=== PATIENT | female | born 1965 | race Caucasian/White ===

== ENCOUNTER 2021-11-09 13:41 | Emergency (ER) | payer BC, OTHER ==
[~2021-11-09] VITALS: Ht 182.9 cm; Wt 110.0 kg
[2021-11-09 14:00] LABS: Basophils # (auto) 0.1 10 ^3/uL (0-0.2); Eosinophils # (auto) 0.2 10 ^3/uL (0-0.8); Hematocrit 41.9 % (36.0-46.0); Hemoglobin 14.1 g/dL (12.2-16.2); Lymphocytes # (auto) 2.7 10 ^3/uL (0.4-5.4); Lymphocytes % (auto) 24.2 % (10.0-50.0); Mean Corpuscular Hgb Conc. 33.6 g/dL (32.0-36.0); Mean Corpuscular Volume 80.3 fL (80.0-100.0); Monocytes # (auto) 0.7 10 ^3/uL (0-1.3); Monocytes % (auto) 6.2 % (0.0-12.0); Neutrophils # (auto) 7.4 10 ^3/uL (1.6-8.6); Neutrophils % (auto) 66.6 % (37.0-80.0); Red Blood Cells 5.21 10^6/uL (4.0-5.20); Red Cell Distribution Width 15.6 % (11.8-14.3); White Blood Cell 11.1 10^3/uL (4.4-10.8)
[2021-11-09 14:15] LABS: Albumin 3.6 g/dL (3.4-5.0); Calcium 8.6 mg/dL (8.5-10.1); Magnesium 1.2 mg/dL (1.6-2.6); Potassium 3.2 mmol/L (3.5-5.1)
[2021-11-09 14:18] LABS: BUN/Creatinine Ratio 11.2; Bilirubin, Total 0.4 mg/dL (0.2-1.0); Total Protein 8.2 g/dL (6.4-8.2)
[2021-11-09 14:47] LABS: INR 1.01 (0.9-1.15)
[2021-11-09] MEDS: ASPirin 325 MG TAB PO ONE (17:57)
[2021-11-09 17:58] VITALS: BP 138/78
[2021-11-09] MEDS: NITROGLYCERIN 0.4 MG SL TAB SL ONE (17:58)
== END 2021-11-10 01:57 | disposition left against medical advice (07) ==
LOC: ER 13:41
DX: R07.89 Other chest pain (principal); I10 Essential (primary) hypertension; E11.9 Type 2 diabetes mellitus without complications; E78.5 Hyperlipidemia, unspecified; J45.909 Unspecified asthma, uncomplicated; F17.210 Nicotine dependence, cigarettes, uncomplicated; Z53.29 Procedure and treatment not carried out because of patient's decision for other reasons; Z20.822 Contact with and (suspected) exposure to COVID-19
CPT/HCPCS: 36415; 80053; 83690; 83735; 83880; 84484; 85025; 85379; 85610; 85730; 93005

== ENCOUNTER 2025-01-21 17:52 | Inpatient (IN) | payer OTHER ==
[~2025-01-21] VITALS: Ht 180.3 cm; Wt 115.3 kg
[2025-01-21] MEDS: MORPHINE SULFATE 4 MG/ML SYR/VIAL IV ONE (18:15)
[2025-01-21] MEDS: SODIUM CHLORIDE 0.9% 1,000 ML IVB ONE (18:15)
[2025-01-21] MEDS: ONDANSETRON HCL 4 MG/2 ML VIAL IV ONE (18:15)
--- NOTE | 2025-01-21 18:28 | ED.PDOC ---
General HPI Comments 59y F who presents to the ED for chief complaint of flank pain. Pt states she been having L sided abdominal pain radiating to the L flank for the past 2x weeks. Pt states the pain is constant, non-radiating, rating the pain 10/10, sharp in nature, with noted exacerbation of pain with movement and no relieving factors. Pt has associated nausea and vomiting but denies any other symptoms. Pt states she has had kidney stones bilaterally and has had lithotripsy done but no nephrostomy tube was placed. Pt states 1x hours prior, her pain exacerbated and pt went to chiropractor thinking it was due to her back pain but states she was told it was her kidney and to come to the ED for further evaluation. Pt in the ED, noted to be in distress. Pt denies any other symptoms. Chief Complaint: Flank Pain Time Seen by MD: 18:24 Primary Care Provider: CELESTINE Mejias notes: Medications, Allergies Allergies: Coded Allergies: NO KNOWN ALLERGIES (Unverified , 05/08/12) Information Source: Patient, Spouse Mode of Arrival: Wheelchair Brought in by: spouse Severity: Moderate Inability to void: None Timing: Hours, Weeks Duration: Since onset Prehospital treatment: None Onset: Spontaneous Symptoms: None History of: Kidney stone, Recent post-op Location: Suprapubic, (L)Flank Modifying factors: None associated signs and symptoms: Nausea, Vomiting, Flank Pain Past Medical History PAST MEDICAL HISTORY: Asthma, DM, High Lipids, HTN Past Medical History (Other): kidney stones Surgical History: Tonsillectomy, Tubal Ligation Surgical History (Other): lithotripsy, [employer] 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 Family History Family History (Other): [place] Social History Smoker: Cigarettes, Less Than 1 Pack/Day Alcohol: Denies ETOH Use Drugs: Denies Drug Use Lives In: Home Constitutional: denies: chills, diaphoresis, fatigue, fever, malaise, sweats, weakness, others EENTM: denies: blurred vision, double vision, ear bleeding, ear discharge, ear drainage, ear pain, ear ringing, eye pain, eye redness, hearing loss, mouth pain, mouth swelling, nasal discharge, nose bleeding, nose congestion, nose pain, photophobia, tearing, throat pain, throat swelling, voice changes, others Respiratory: denies: cough, hemoptysis, orthopnea, SOB at rest, shortness of breath, SOB with excertion, stridor, wheezing, others Cardiovascular: denies: chest pain, dizzy spells, diaphoresis, Dyspnea on exertion, edema, irregular heart beat, left arm pain, lightheadedness, palpitations, PND, syncope, others Gastrointestinal: reports: nausea, vomiting; denies: abdomen distended, abdominal pain, blood streaked bowels, constipated, diarrhea, dysphagia, difficulty swallowing, hematemesis, melena, poor appetite, poor fluid intake, rectal bleeding, rectal pain, others Genitourinary: reports: flank pain; denies: abnormal vagina bleeding, burning, dyspareunia, dysuria, frequency, hematuria, incontinence, pain, , vagina discharge, urgency, others Neurological: denies: dizziness, fainting, headache, left sided numbness, left sided weakness, numbness, paresthesia, pre-existing deficit, right sided numbness, right sided weakness, seizure, speech problems, tingling, tremors, weakness, others Musculoskeletal: denies: back pain, gout, joint pain, joint swelling, muscle pain, muscle stiffness, neck pain, others Integumetry: denies: bruises, change in color, change in hair/nails, dryness, laceration, lesions, lumps, rash, wounds, others Allergic/Immunocompromised: denies: Difficulty Healing, Frequent Infections, Hives, Itching, others Hematologic/Lymphatic: denies: anemia, blood clots, easy bleeding, easy bruising, swollen glands, others Endocrine: denies: excessive hunger, excessive sweating, excessive thirst, excessive urination, flushing, intolerance to cold, intolerance to heat, unexplained weight gain, unexplained weight loss, others Psychiatric: denies: anxiety, bipolar disorder, depression, hopeless, panic disorder, schizophrenia, sleepless, suicidal, others All Other Systems: Reviewed and Negative Physical Exam General Appearance: Moderate Distress HEENT: Normal ENT Inspection, Pharynx Normal, TMs Normal Neck: Full Range of Motion, Non-Tender, Normal, Normal Inspection Respiratory: Chest Non-Tender, Lungs Clear, No Accessory Muscle Use, No Respiratory Distress, Normal Breath Sounds Cardiovascular: No Edema, No JVD, No Murmur, No Gallop, Normal Peripheral Pulses, Regular Rate/Rhythm Breast Exam: Deferred Gastrointestinal: LLQ, LUQ, No Organomegaly, No Pulsatile Mass, Normal Bowel Sounds, Soft, Tenderness Genitalia: Deferred Pelvic: Deferred Rectal: Deferred Extremities: No calf tenderness, Normal capillary refill, Normal inspection, Normal range of motion, Non-tender, No pedal edema Musculoskeletal : Apperance: Normal Neurologic: Alert, fitter helper II-XII nml as Tested, No Motor Deficits, Normal Affect, Normal Mood, No Sensory Deficits Cerebellar Function: Normal Reflexes: Normal Skin: Dry, Normal Color, Warm Lymphatic: No Adenopathy Was a procedure done? Was a procedure done?: No Differential Diagnosis Kidney stone (Female): DJD, Musculoskeletal pain, Pyelonephritis, Strain, Urinary obstruction, Urolithiasis, Other Urinary Problem (Female): Post-op complication, Pyelonephritis, UTI X-Ray, Labs, Meds, VS Vital Signs Date Time Temp Pulse Resp B/P (MAP) Pulse Ox O2 Delivery O2 Flow Rate FiO2 01/21/25 17:56 98.7 87 18 117/72 97 98.7 Lab Test 01/21/25 18:31 Range/Units White Blood Count 10.2 4.4-10.8 10^3/uL Red Blood Count 5.56 H 4.0-5.20 10^6/uL Hemoglobin 15.2 12.2-16.2 g/dL Hematocrit 45.7 36.0-46.0 % Mean Corpuscular Volume 82.1 80.0-100.0 fL Mean Corpuscular Hemoglobin 27.4 L 28.0-32.0 pg Mean Corpuscular Hemoglobin Concent 33.4 32.0-36.0 g/dL Red Cell Distribution Width 15.2 H 11.8-14.3 % Platelet Count 251 140-450 10^3/uL Mean Platelet Volume 8.0 6.9-10.8 fL Neutrophils (%) (Auto) 57.6 37.0-80.0 % Lymphocytes (%) (Auto) 31.3 10.0-50.0 % Monocytes (%) (Auto) 7.8 0.0-12.0 % Eosinophils (%) (Auto) 2.8 0.0-7.0 % Basophils (%) (Auto) 0.5 0.0-2.0 % Neutrophils # (Auto) 5.9 1.6-8.6 10 ^3/uL Lymphocytes # (Auto) 3.2 0.4-5.4 10 ^3/uL Monocytes # (Auto) 0.8 0-1.3 10 ^3/uL Eosinophils # (Auto) 0.3 0-0.8 10 ^3/uL Basophils # (Auto) 0.1 0-0.2 10 ^3/uL Nucleated Red Blood Cells 0.0 % Sodium Level Pending Potassium Level Pending Chloride Level Pending Carbon Dioxide Level Pending Anion Gap Pending Blood Urea Nitrogen Pending Creatinine Pending Glomerular Filtration Rate Calc Pending BUN/Creatinine Ratio Pending Serum Glucose Pending Calcium Level Pending Intractable abdominal pain The CBC is within normal limits The chemistry panel is pending An IV Hep-Lock was established The patient was given morphine 4 mg IV push for the pain The patient was given ketorolac 15 mg IV push The patient was given Zofran 4 mg IV push At this time, the patient is being admitted to the hospitalist. The CAT scan of the abdomen and pelvis shows: IMPRESSION: Nonobstructing left nephrolithiasis measuring up to 17 mm in the lower pole. No hydronephrosis bilaterally. Hepatosplenomegaly. The patient is being admitted Images Reviewed?: Images reviewed and evaluated by me Time of 1ST Reevaluation: 19:00 Reevaluation 1ST: Unchanged Patient Education/Counseling: Diagnosis, Treatment, Prognosis Family Education/Counseling: Diagnosis, Treatment, Prognosis SEPSIS Sepsis Screen Date sepsis recognized/suspect: Jan 21, 2025 Time Sepsis recognized/suspect: 1755 Recent Procedure: No Respiratory Rate >20: No Heart Rate >90: No Temp<36 C (96.8 F) or >38.3 C: No SBP <90 or MAP <65 mmHG: No New Acute Mental Status Change: No Is the patient on CPAP, BIPAP,: No Physician Orders Urinalysis (01/21/25 18:14) Sodium Chloride 0.9% (01/21/25 18:15) Ct Ab Pel Wo Con-No Oral Or Iv (01/21/25 18:14) Heplock Iv (01/21/25 18:14) Basic Metabolic Panel (01/21/25 18:14) Vital Signs Date Time Temp Pulse Resp B/P (MAP) Pulse Ox O2 Delivery O2 Flow Rate FiO2 01/21/25 17:56 98.7 87 18 117/72 97 98.7 Laboratory Tests Test 01/21/25 18:31 White Blood Count 10.2 10^3/uL (4.4-10.8) Departure 1 Departure Time of Disposition: 18:58 Impression: Primary Impression: Intractable abdominal pain Additional Impression: Nephrolithiasis Disposition: 09 ADMITTED INPATIENT Admit to: Med Surg Condition: Fair Critical Care Note Critical Care Time?: No Stability Stability form required: Yes Unstable for transfer: ED Physician Assesment (Clinical assesment) Heart Score Heart Score: Heart Score Response (Comments) Value History N/A 0 EKG N/A 0 Age N/A 0 Risk Factors N/A 0 Troponin N/A 0 Total 0 I personally scribed for PAM BEACH MD ([email or web address]) on 01/21/25 at 18:28. Electronically submitted by Angelita Salinas ([email or web address]). PAM BEACH MD Jan 21, 2025 18:28
[2025-01-21 18:55] LABS: Hematocrit 45.7 % (36.0-46.0); Hemoglobin 15.2 g/dL (12.2-16.2); Mean Corpuscular Hemoglobin 27.4 pg (28.0-32.0); Mean Corpuscular Volume 82.1 fL (80.0-100.0); Nucleated Red Blood Cells % 0.0 %
--- NOTE | 2025-01-21 18:55 | DVH ---
Exam: CT CT AB PEL WO CON-NO ORAL OR IV History: left flank pain Comparison Study: None Technique: Multidetector spiral CT of the abdomen was performed from lung bases to pubic symphysis. Imaging was performed without IV contrast. Axial, coronal and sagittal multiplanar reformats were obtained from the axial data set by the technologist. Radiation Dose : 1. Abdomen/Pelvis: CTDIvol 27.59 mGy, DLP 1682.83 mGy*cm. Findings: Evaluation of solid organs is limited due to lack of intravenous contrast use. Lung Bases: No acute or significant lung base finding. Normal heart size. No pleural or pericardial effusion. Liver: Hepatomegaly. No focal lesions. Gallbladder and Biliary Tree: Unremarkable Spleen: Splenomegaly Pancreas: Unremarkable Adrenal Glands: There is a 14 mm low-density left adrenal nodule, likely a benign adenoma. Right adrenal gland is unremarkable. Kidneys: Nonobstructing left nephrolithiasis measuring up to 17 mm in the lower pole. No hydronephrosis bilaterally. Bladder: Grossly unremarkable for degree of distention. Bowel: No acute bowel abnormality. Normal appendix. Ascites: Absent Lymphadenopathy: No mesenteric, retroperitoneal or periportal lymphadenopathy. Abdominal Wall and Mesentery: Small fat containing bilateral inguinal hernias. Vasculature: Scattered plaque throughout the abdominal aorta which is otherwise normal in size. Pelvic Organs: Hysterectomy. No adnexal masses. Musculoskeletal: No aggressive focal bony lesions, acute fractures or dislocation. IMPRESSION: Nonobstructing left nephrolithiasis measuring up to 17 mm in the lower pole. No hydronephrosis bilaterally. Hepatosplenomegaly. Radiation optimization: All CT scans at this facility use at least one of these dose optimization techniques: automated exposure control mA and/or kV adjustment per patient size (includes targeted exams where dose is matched to clinical indication) or iterative reconstruction.
[2025-01-21 19:00] LABS: Chloride 105 mmol/L (98-107); Potassium 3.8 mmol/L (3.5-5.1); Sodium 145 mmol/L (136-145)
[2025-01-21 19:01] LABS: Anion Gap 9 (5-15); Calcium 9.4 mg/dL (8.7-10.4)
[2025-01-21 19:06] LABS: BUN/Creatinine Ratio 12.5 (10.0-20.0); Blood Urea Nitrogen 9 mg/dL (9-23)
[2025-01-21 19:07] LABS: Carbon Dioxide 31 mmol/L (20-31); Glucose 108 mg/dL (74-106)
[2025-01-21] MEDS ORDERED: ONDANSETRON ODT 4 MG TAB PO PRN (20:45)
[2025-01-21] MEDS: SODIUM CHLORIDE 0.9% 1,000 ML IV SCH (20:45)
[2025-01-21] MEDS: KETOROLAC TROMETH 30 MG/ML 1ML VIAL IV ONE (21:03)
--- NOTE | 2025-01-21 21:17 | DVHHPRES ---
History of Present Illness Resident Creating Document: CATHIE DEXTER RESIDENT History of Present Illness This is a 59-year-old female with past medical history of chronic back pain, anxiety, type 2 diabetes mellitus, asthma, hyperlipidemia, HTN, sciatica came with a complaint of abdominal pain for 2 weeks which is worsen around 5:30 p.m.. Abdominal pain was 10/10 intensity, radiates from left side of the abdomen to left flank area, aggravated on movement, no relieving factor. Patient had recurrent kidney stone and 3 times lithotripsy done last 21 Jun 2024(by Dr. Ahumada). Patient denies any dietary habit changes, drink adequate amount of water daily. Abdominal pain associated with nausea and vomiting with does contained food material but not mixed with blood. Patient denies any hematuria, dysuria, passes of clot in urine. Jorge L accompanied with patient in ER. Denies any recent history of fall, trauma or sick contact. Denies any fever, headache, chest pain, SOB or any other focal weakness. Past medical: As above Surgical: Hysterectomy 2015, lithotripsy x3 and last June 2024 Family history:-mother heart attack Social: Smoking given, denies illicit drug Allergy: No known allergy PCP: Rome Rodriguez. Home med: [place], Ozempic, alprazolam, pregabalin, levalbuterol, glimepiride, duloxetine, albuterol, rosuvastatin, allopurinol, valsartan. Review of Systems Constitutional: Yes: Weakness, Malaise; No: Fever, Chills, Sweats, Other Eyes: No: Pain, Vision change, Conjunctivae inflammation, Eyelid inflammation, Other, Redness ENT: No: Ear pain, Ear discharge, Nose pain, Nose discharge, Nose congestion, Mouth pain, Mouth swelling, Throat pain, Throat swelling, Other Respiratory: No: Cough, Dry, Shortness of breath, SOB with excertion, Wheezing, Hemoptysis, Pleuritic Pain, Sputum, Wheezing, Other Cardiovascular: No: Chest Pain, Palpitations, Orthopnea, Paroxysmal Noc. Dyspnea, Edema, Lt Headedness, Other Gastrointestinal: Nausea, Vomiting, Abdominal Pain; No: Diarrhea, Constipation, Melena, Hematochezia, Other Genitourinary: No Dysuria, No Frequency, No Incontinence, No Hematuria, No Retention; Other (Left flank pain) Musculoskeletal: No: other, neck pain, shoulder pain, arm pain, back pain, hand pain, leg pain, foot pain Skin: No: Rash, Lesions, Jaundice, Bruising, Other Neurological: No: Weakness, Numbness, Incoordination, Change in speech, Confusion, Seizures, Other Allergies: Coded Allergies: NO KNOWN ALLERGIES (Unverified , 05/08/12) Medications Current Medications Medications Dose Ordered Sig/Shannon Route Start Time Stop Time Status Last Admin Dose Admin Sodium Chloride 1,000 ml @ 100 mls/hr Q10H IV 01/21/25 20:45 UNV Heparin Sodium (Porcine) 5,000 units Q12HR SC 01/21/25 22:00 UNV Pantoprazole Sodium 40 mg DAILY@0600 PO 01/22/25 06:00 UNV Hydromorphone HCl 0.5 mg Q4HPRN PRN IV 01/21/25 20:45 UNV Insulin Human Lispro AC SC 01/22/25 07:00 UNV Atorvastatin Calcium 40 mg HS PO 01/21/25 22:00 UNV Ondansetron HCl 4 mg Q6HP PRN PO 01/21/25 20:45 UNV Exam Vital Signs Vital Signs Date Time Temp Pulse Resp B/P (MAP) Pulse Ox O2 Delivery O2 Flow Rate FiO2 01/21/25 17:56 98.7 87 18 117/72 97 98.7 General Appearance: Alert, Oriented X3, Cooperative, moderate distress HEENT: Atraumatic, PERRLA, EOMI Respiratory: Clear to auscultation, Normal air movement Cardiovascular: Regular rate, Normal S1, Normal S2 Abdominal: Normal bowel sounds, Soft, Other (Tender left flank area, left costovertebral angle tender ) Extremities: No clubbing, No cyanosis, No edema, Normal pulses Skin: No rashes, No breakdown, No significant lesion Neuro: Normal gait, Normal speech, Strength at 5/5 X4 ext, Cranial nerves 3-12 NL, Other (Bilateral lower extremity sensation decreased 4/5) Labs/Xrays Labs Test 01/21/25 18:31 Range/Units White Blood Count 10.2 4.4-10.8 10^3/uL Red Blood Count 5.56 H 4.0-5.20 10^6/uL Hemoglobin 15.2 12.2-16.2 g/dL Hematocrit 45.7 36.0-46.0 % Mean Corpuscular Volume 82.1 80.0-100.0 fL Mean Corpuscular Hemoglobin 27.4 L 28.0-32.0 pg Mean Corpuscular Hemoglobin Concent 33.4 32.0-36.0 g/dL Red Cell Distribution Width 15.2 H 11.8-14.3 % Platelet Count 251 140-450 10^3/uL Mean Platelet Volume 8.0 6.9-10.8 fL Neutrophils (%) (Auto) 57.6 37.0-80.0 % Lymphocytes (%) (Auto) 31.3 10.0-50.0 % Monocytes (%) (Auto) 7.8 0.0-12.0 % Eosinophils (%) (Auto) 2.8 0.0-7.0 % Basophils (%) (Auto) 0.5 0.0-2.0 % Neutrophils # (Auto) 5.9 1.6-8.6 10 ^3/uL Lymphocytes # (Auto) 3.2 0.4-5.4 10 ^3/uL Monocytes # (Auto) 0.8 0-1.3 10 ^3/uL Eosinophils # (Auto) 0.3 0-0.8 10 ^3/uL Basophils # (Auto) 0.1 0-0.2 10 ^3/uL Nucleated Red Blood Cells 0.0 % Sodium Level 145 136-145 mmol/L Potassium Level 3.8 3.5-5.1 mmol/L Chloride Level 105 98-107 mmol/L Carbon Dioxide Level 31 20-31 mmol/L Anion Gap 9 5-15 Blood Urea Nitrogen 9 9-23 mg/dL Creatinine 0.72 0.550-1.02 mg/dL Glomerular Filtration Rate Calc 96 >90 mL/min BUN/Creatinine Ratio 12.5 10.0-20.0 Serum Glucose 108 H 74-106 mg/dL Calcium Level 9.4 8.7-10.4 mg/dL SEPSIS Sepsis Screen Date sepsis recognized/suspect: Jan 21, 2025 Time Sepsis recognized/suspect: 1755 Recent Procedure: No Respiratory Rate >20: No Heart Rate >90: No Temp<36 C (96.8 F) or >38.3 C: No SBP <90 or MAP <65 mmHG: No New Acute Mental Status Change: No Is the patient on CPAP, BIPAP,: No Physician Orders Urinalysis (01/21/25 18:14) Ct Ab Pel Wo Con-No Oral Or Iv (01/21/25 18:14) Heplock Iv (01/21/25 18:14) Admit (01/21/25 20:39) Code Status (01/21/25 20:39) Sodium Chloride 0.9% (01/21/25 20:45) Notify Md Of Changes From Base (01/21/25 20:39) Consistent Carb(Ccho)Diabetes (01/22/25 Breakfast) Heparin Sodium (Porcine) (01/21/25 22:00) Pantoprazole Tablet (Protonix Tablet) (01/22/25 06:00) Hydromorphone Injection (Dilaudid Inject (01/21/25 20:45) Alprazolam Tablet (Xanax Tablet) (01/21/25 20:45) Insulin Lispro (Human) (Humalog) (01/22/25 07:00) Atorvastatin (Lipitor) (01/21/25 22:00) Ondansetron Po (Zofran Po) (01/21/25 20:45) * Urology Consult (01/21/25 20:45) Vital Signs Date Time Temp Pulse Resp B/P (MAP) Pulse Ox O2 Delivery O2 Flow Rate FiO2 01/21/25 17:56 98.7 87 18 117/72 97 98.7 Laboratory Tests Test 01/21/25 18:31 White Blood Count 10.2 10^3/uL (4.4-10.8) Assessment/Plan Assessment/Plan Intractable abdominal pain due to left-sided nephrolithiasis Patient came with abdominal pain, nausea, vomiting In ER patient received ketorolac, morphine, NSS, ondansetron CT abdomen pelvis: Kidneys: Nonobstructing left nephrolithiasis measuring up to 17 mm in the lower pole. No hydronephrosis bilaterally. IVF Pain management IV antiemetic UA Urology consult Follow labs Chronic low-back pain Questionable sciatica Home medication pregabalin, duloxetine Left adrenal nodule CT abdomen pelvis without contrast: Adrenal Glands: There is a 14 mm low-density left adrenal nodule, likely a benign adenoma. Right adrenal gland is unremarkable. Outpatient follow-up Type 2 diabetes mellitus Hyperlipidemia with diabetes Hypertensive kidney disease stage II Home medication valsartan 320 mg Insulin sliding scale Monitor blood sugar HbA1c Anxiety disorder Alprazolam -home meds History of asthma Home medication albuterol inhaler as needed Current smoker Counseling done>13 minutes spent. Diet: Carbohydrate consistent DVT prophylaxis: Heparin GI prophylaxis: Pantoprazole Goals of care discussion. More than 29 minute spent with patient. DNR. Case discussed with Dr. Hutchison Plan discussed with: Patient, Spouse (Jorge L), Other (Nurse) My Orders Orders - CATHIE DEXTER Procedure Category Date Status Time Admit ADMIT 01/21/25 Transmitted 20:39 Code Status CODE 01/21/25 Transmitted 20:39 Sodium Chloride 0.9% PHA 01/21/25 Logged 20:45 Notify Of Changes STORM 01/21/25 In Process From Base 20:39 Consistent DIET 01/22/25 Transmitted Carb(Ccho)Diabetes Breakfast Heparin Sodium PHA 01/21/25 Logged (Porcine) 22:00 Pantoprazole Tablet PHA 01/22/25 Logged (Protonix Tablet) 06:00 Hydromorphone PHA 01/21/25 Logged Injection (Dilaudid 20:45 Alprazolam Tablet PHA 01/21/25 Logged (Xanax Tablet) 20:45 Insulin Lispro PHA 01/22/25 Logged (Human) (Humalog) 07:00 Atorvastatin (Lipitor) PHA 01/21/25 Logged 22:00 Ondansetron Po PHA 01/21/25 Logged (Zofran Po) 20:45 * Urology Consult CONS 01/21/25 Transmitted 20:45 Date of Service: Jan 21, 2025 Billing Provider: RAY HUTCHISON MD Common Visit Codes: 57050-IFMSDLO INP/OBS CARE (HIGH) Secondary Visit Codes: 47356-ASHVYZSG CARE PLAN 30 MINUTES CATHIE DEXTER Jan 21, 2025 21:17
[2025-01-21] MEDS: ALPRAZolam 0.5 MG TAB PO ONE (21:40)
[2025-01-21] MEDS: HEPARIN SODIUM (PORCINE) 5000 UNITS/ML 1ML VIAL SC SCH (22:00)
[2025-01-21] MEDS: ATORVASTATIN 20 MG TAB PO SCH (22:00)
[2025-01-21 22:43] LABS: Urine Protein, UAD TRACE (Negative)
[2025-01-22] MEDS: HYDROmorphone HCL 2 MG/ML VL/or syr IV PRN (02:34)
[2025-01-22 02:37] VITALS: BP 133/79; PULSE 74; RESP 18; TEMP 98.2; O2SAT 96
[2025-01-22 05:00] VITALS: BP 143/63; PULSE 78; RESP 18; TEMP 98.2; O2SAT 99
[2025-01-22] MEDS: PANTOPRAZOLE 40 MG TAB PO SCH (06:00)
[2025-01-22] MEDS: INSULIN LISPRO (HUMAN) 100 UNITS/ML ML SC SCH (06:29)
[2025-01-22 08:00] VITALS: O2SAT 93
[2025-01-22 09:00] VITALS: BP 125/90; PULSE 74; RESP 16; TEMP 97.8; O2SAT 93
[2025-01-22 09:18] LABS: Hematocrit 41.8 % (36.0-46.0); Hemoglobin 14.0 g/dL (12.2-16.2); Mean Corpuscular Hemoglobin 27.9 pg (28.0-32.0); Mean Corpuscular Volume 83.5 fL (80.0-100.0); Nucleated Red Blood Cells % 0.0 %
[2025-01-22 09:35] LABS: Alanine Aminotransferase 22 U/L (7-40); Albumin 3.7 g/dL (3.2-4.8); Alkaline Phosphatase 96 U/L (46-116); Anion Gap 8 (5-15); BUN/Creatinine Ratio 14.5 (10.0-20.0); Blood Urea Nitrogen 9 mg/dL (9-23); Calcium 8.7 mg/dL (8.7-10.4); Carbon Dioxide 28 mmol/L (20-31); Cholesterol 88 mg/dL (< 200); Potassium 3.7 mmol/L (3.5-5.1); Sodium 143 mmol/L (136-145); Total Protein 6.2 g/dL (5.7-8.2)
[2025-01-22 09:36] LABS: Bilirubin, Total 0.4 mg/dL (0.2-1.0)
[2025-01-22 09:49] LABS: Chloride 107 mmol/L (98-107); Glucose 129 mg/dL (74-106); HDL Cholesterol 32 mg/dL (40-59); Triglycerides 193 mg/dL (< 150)
--- NOTE | 2025-01-22 12:38 | DVHINCON2 ---
Date of service: Jan 22, 2025 Referring Physician Hospitalist Reason for Consultation Left renal stone History of Present Illness 59y F admitted for chief complaint of flank pain. Pt states she been having L sided abdominal pain radiating to the L flank for the past 2x weeks. Pt states the pain is constant, non-radiating, rating the pain 10/10, sharp in nature, with noted exacerbation of pain with movement and no relieving factors. Pt has associated nausea and vomiting but denies any other symptoms. Pt states she has had kidney stones bilaterally and has had lithotripsy done but no nephrostomy tube was placed. Pt states 1x hours prior, her pain exacerbated and pt went to chiropractor thinking it was due to her back pain but states she was told it was her kidney and to come to the ED for further evaluation. Pt in the ED, noted to be in distress. Pt denies any other symptoms. Chief Complaint: Flank Pain Primary Care Provider: CELESTINE Mejias notes: Medications, Allergies Allergies: Coded Allergies: NO KNOWN ALLERGIES (Unverified , 05/08/12) Information Source: Patient, Spouse Mode of Arrival: Wheelchair Brought in by: spouse Severity: Moderate Inability to void: None Timing: Hours, Weeks Duration: Since onset Prehospital treatment: None Onset: Spontaneous Symptoms: None History of: Kidney stone, Recent post-op Location: Suprapubic, (L)Flank Modifying factors: None associated signs and symptoms: Nausea, Vomiting, Flank Pain Past Medical History Asthma, DM, High Lipids, HTN Past Surgical History Tonsillectomy, Tubal Ligation Surgical History (Other): lithotripsy, [employer] History: Denies all [employer] Hx Family History: Coronary thrombosis G8 MOTHER Allergies: Coded Allergies: NO KNOWN ALLERGIES (Unverified , 05/08/12) Current Medications Current Medications Medications (Trade) Dose Ordered Sig/Shannon Route PRN Reason Start Time Stop Time Status Last Admin Sodium Chloride 1,000 ml @ 100 mls/hr Q10H IV 01/21/25 20:45 01/22/25 06:28 Heparin Sodium (Porcine) 5,000 units Q12HR SC 01/21/25 22:00 01/22/25 09:59 Pantoprazole Sodium (Protonix Tablet) 40 mg DAILY@0600 PO 01/22/25 06:00 Hydromorphone HCl (Dilaudid Injection) 0.5 mg Q4HPRN PRN IV MODERATE PAIN (4-6 PAIN SCALE) 01/21/25 20:45 01/22/25 10:02 Insulin Human Lispro (HumaLOG) AC SC 01/22/25 07:00 Atorvastatin Calcium (Lipitor) 40 mg HS PO 01/21/25 22:00 Ondansetron HCl (Zofran Po) 4 mg Q6HP PRN PO NAUSEA / VOMITING 01/21/25 20:45 Review of Systems Constitutional: denies: chills, diaphoresis, fatigue, fever, malaise, sweats, weakness, others EENTM: denies: blurred vision, double vision, ear bleeding, ear discharge, ear drainage, ear pain, ear ringing, eye pain, eye redness, hearing loss, mouth pain, mouth swelling, nasal discharge, nose bleeding, nose congestion, nose pain, photophobia, tearing, throat pain, throat swelling, voice changes, others Respiratory: denies: cough, hemoptysis, orthopnea, SOB at rest, shortness of breath, SOB with excertion, stridor, wheezing, others Cardiovascular: denies: chest pain, dizzy spells, diaphoresis, Dyspnea on exertion, edema, irregular heart beat, left arm pain, lightheadedness, palpitations, PND, syncope, others Gastrointestinal: reports: nausea, vomiting; denies: abdomen distended, abdominal pain, blood streaked bowels, constipated, diarrhea, dysphagia, difficulty swallowing, hematemesis, melena, poor appetite, poor fluid intake, rectal bleeding, rectal pain, others Genitourinary: reports: flank pain; denies: abnormal vagina bleeding, burning, dyspareunia, dysuria, frequency, hematuria, incontinence, pain, , vagina discharge, urgency, others Neurological: denies: dizziness, fainting, headache, left sided numbness, left sided weakness, numbness, paresthesia, pre-existing deficit, right sided numbness, right sided weakness, seizure, speech problems, tingling, tremors, weakness, others Musculoskeletal: denies: back pain, gout, joint pain, joint swelling, muscle pain, muscle stiffness, neck pain, others Integumetry: denies: bruises, change in color, change in hair/nails, dryness, laceration, lesions, lumps, rash, wounds, others Allergic/Immunocompromised: denies: Difficulty Healing, Frequent Infections, Hives, Itching, others Hematologic/Lymphatic: denies: anemia, blood clots, easy bleeding, easy bruising, swollen glands, others Endocrine: denies: excessive hunger, excessive sweating, excessive thirst, excessive urination, flushing, intolerance to cold, intolerance to heat, unexplained weight gain, unexplained weight loss, others Psychiatric: denies: anxiety, bipolar disorder, depression, hopeless, panic disorder, schizophrenia, sleepless, suicidal, others All Other Systems: Reviewed and Negative Vital Signs Vital Signs Date Time Temp Pulse Resp B/P (MAP) Pulse Ox O2 Delivery O2 Flow Rate FiO2 01/22/25 10:32 74 18 141/75 01/22/25 09:00 97.8 93 97.8 01/22/25 08:00 Room Air* 0 21 Physical Exam General Appearance: Moderate Distress HEENT: Normal ENT Inspection, Pharynx Normal, TMs Normal Neck: Full Range of Motion, Non-Tender, Normal, Normal Inspection Respiratory: Chest Non-Tender, Lungs Clear, No Accessory Muscle Use, No Respiratory Distress, Normal Breath Sounds Cardiovascular: No Edema, No JVD, No Murmur, No Gallop, Normal Peripheral Pulses, Regular Rate/Rhythm Breast Exam: Deferred Gastrointestinal: LLQ, LUQ, No Organomegaly, No Pulsatile Mass, Normal Bowel Sounds, Soft, Tenderness Genitalia: Deferred Pelvic: Deferred Rectal: Deferred Extremities: No calf tenderness, Normal capillary refill, Normal inspection, Normal range of motion, Non-tender, No pedal edema Musculoskeletal : Apperance: Normal Neurologic: Alert, project economist II-XII nml as Tested, No Motor Deficits, Normal Affect, Normal Mood, No Sensory Deficits Cerebellar Function: Normal Reflexes: Normal Skin: Dry, Normal Color, Warm Lymphatic: No Adenopathy Labs/Diagnostic Data Labs Test 01/22/25 11:13 01/22/25 08:54 01/21/25 22:09 Range/Units POC Glucose 108 H 70-106 mg/dl White Blood Count 7.1 # 4.4-10.8 10^3/uL Red Blood Count 5.01 4.0-5.20 10^6/uL Hemoglobin 14.0 12.2-16.2 g/dL Hematocrit 41.8 36.0-46.0 % Mean Corpuscular Volume 83.5 80.0-100.0 fL Mean Corpuscular Hemoglobin 27.9 L 28.0-32.0 pg Mean Corpuscular Hemoglobin Concent 33.4 32.0-36.0 g/dL Red Cell Distribution Width 15.3 H 11.8-14.3 % Platelet Count 156 140-450 10^3/uL Mean Platelet Volume 7.6 6.9-10.8 fL Neutrophils (%) (Auto) 58.0 37.0-80.0 % Lymphocytes (%) (Auto) 30.3 10.0-50.0 % Monocytes (%) (Auto) 7.8 0.0-12.0 % Eosinophils (%) (Auto) 3.3 0.0-7.0 % Basophils (%) (Auto) 0.6 0.0-2.0 % Neutrophils # (Auto) 4.1 1.6-8.6 10 ^3/uL Lymphocytes # (Auto) 2.1 0.4-5.4 10 ^3/uL Monocytes # (Auto) 0.6 0-1.3 10 ^3/uL Eosinophils # (Auto) 0.2 0-0.8 10 ^3/uL Basophils # (Auto) 0 0-0.2 10 ^3/uL Nucleated Red Blood Cells 0.0 % Sodium Level 143 136-145 mmol/L Potassium Level 3.7 3.5-5.1 mmol/L Chloride Level 107 98-107 mmol/L Carbon Dioxide Level 28 20-31 mmol/L Anion Gap 8 5-15 Blood Urea Nitrogen 9 9-23 mg/dL Creatinine 0.62 0.550-1.02 mg/dL Glomerular Filtration Rate Calc 103 >90 mL/min BUN/Creatinine Ratio 14.5 10.0-20.0 Serum Glucose 129 H 74-106 mg/dL Hemoglobin A1c 6.9 H <5.7 % A1C Calcium Level 8.7 8.7-10.4 mg/dL Total Bilirubin 0.4 0.2-1.0 mg/dL Aspartate Amino Transferase (AST) 19 13-40 U/L Alanine Aminotransferase (ALT) 22 7-40 U/L Alkaline Phosphatase 96 46-116 U/L Total Protein 6.2 5.7-8.2 g/dL Albumin 3.7 3.2-4.8 g/dL Triglycerides Level 193 H < 150 mg/dL Cholesterol Level 88 < 200 mg/dL LDL Cholesterol 36 < 100 mg/dL HDL Cholesterol 32 L 40-59 mg/dL Vitamin B12 Level 265 211-911 pg/mL Vitamin D 25-Hydroxy 29.1 L 30.0-100 ng/mL Thyroid Stimulating Hormone (TSH) 1.67 0.55-4.78 uIU/mL Urine Color Yellow Yellow Urine Clarity Clear Clear Urine pH 6.0 5.0-9.0 Urine Specific [place] 1.022 1.001-1.035 Urine Protein Trace H Negative Urine Ketones Negative Negative Urine Blood Negative Negative /uL Urine Nitrite Negative Negative Urine Bilirubin Negative Negative Urine Urobilinogen 2 H Negative mg/dL Urine Leukocyte Esterase Negative Negative /uL Urine RBC 1 0 - 4 /hpf Urine Microscopic WBC 1 0-5 /HPF Urine Squamous Epithelial Cells Few <5 /hpf Urine Bacteria Few H None Seen /hpf Urine Mucus Few None Seen Urine Glucose Normal Normal mg/dL PATIENT: ALLY LAIRD ACCT: [id number] UNIT: [id number] : 1965 LOC: ER ROOM / BED: / AGE / SEX: 59 / F ADM STATUS: REG ER SERVICE [id number] ORDERING PHYSICIAN: PAM BEACH MD PROCEDURE(s): ABPL - CT AB PEL WO CON-NO ORAL OR IV REASON: left flank pain ORDER NUMBER(s): [id number], ACCESSION NUMBER(s): [id number] Exam: CT CT AB PEL WO CON-NO ORAL OR IV History: left flank pain Comparison Study: None Technique: Multidetector spiral CT of the abdomen was performed from lung bases to pubic symphysis. Imaging was performed without IV contrast. Axial, coronal and sagittal multiplanar reformats were obtained from the axial data set by the technologist. Radiation Dose : 1. Abdomen/Pelvis: CTDIvol 27.59 mGy, DLP 1682.83 mGy*cm. Findings: Evaluation of solid organs is limited due to lack of intravenous contrast use. Lung Bases: No acute or significant lung base finding. Normal heart size. No pleural or pericardial effusion. Liver: Hepatomegaly. No focal lesions. Gallbladder and Biliary Tree: Unremarkable Spleen: Splenomegaly Pancreas: Unremarkable Adrenal Glands: There is a 14 mm low-density left adrenal nodule, likely a benign adenoma. Right adrenal gland is unremarkable. Kidneys: Nonobstructing left nephrolithiasis measuring up to 17 mm in the lower pole. No hydronephrosis bilaterally. Bladder: Grossly unremarkable for degree of distention. Bowel: No acute bowel abnormality. Normal appendix. Ascites: Absent Lymphadenopathy: No mesenteric, retroperitoneal or periportal lymphadenopathy. Abdominal Wall and Mesentery: Small fat containing bilateral inguinal hernias. Vasculature: Scattered plaque throughout the abdominal aorta which is otherwise normal in size. Pelvic Organs: Hysterectomy. No adnexal masses. Musculoskeletal: No aggressive focal bony lesions, acute fractures or dislocation. IMPRESSION: Nonobstructing left nephrolithiasis measuring up to 17 mm in the lower pole. No hydronephrosis bilaterally. Hepatosplenomegaly. Radiation optimization: All CT scans at this facility use at least one of these dose optimization techniques: automated exposure control mA and/or kV adjustment per patient size (includes targeted exams where dose is matched to clinical indication) or iterative reconstruction. ATED BY: JORGE JOSHI MD DICTATED DATE/TIME: 01/21/251852 SIGNED BY: JORGE JOSHI MD SIGNED DATE/TIME: 01/21/251852 CC: Assessment Left renal stone, 17 mm lower pole s/p left ESWL in Mar 2024 at [facility] with no follow ups Plan/Recommendation Left URSLL with renal evacuation (CVAC) TBA Plan discussed with: Patient, Other WALTER LIZ MD Jan 22, 2025 12:38
[2025-01-22 13:00] VITALS: BP 144/91; PULSE 70; RESP 16; O2SAT 95
[2025-01-22] MEDS ORDERED: TRAM50TA2 PO (14:06)
[2025-01-22] MEDS ORDERED: KET30I IM (14:08)
--- NOTE | 2025-01-22 16:20 | DVHDSRES ---
Discharge Summary Date of Admission Resident Creating Document: HAYDEN SINHA RESIDENT Jan 21, 2025 at 20:39 Date of Discharge: Jan 22, 2025 Admitting Diagnosis Left flank pain Labs/Diagnostic Data: Laboratory Results Test 01/22/25 11:13 01/22/25 08:54 01/21/25 22:09 POC Glucose 108 mg/dl (70-106) White Blood Count 7.1 10^3/uL (4.4-10.8) Red Blood Count 5.01 10^6/uL (4.0-5.20) Hemoglobin 14.0 g/dL (12.2-16.2) Hematocrit 41.8 % (36.0-46.0) Mean Corpuscular Volume 83.5 fL (80.0-100.0) Mean Corpuscular Hemoglobin 27.9 pg (28.0-32.0) Mean Corpuscular Hemoglobin Concent 33.4 g/dL (32.0-36.0) Red Cell Distribution Width 15.3 % (11.8-14.3) Platelet Count 156 10^3/uL (140-450) Mean Platelet Volume 7.6 fL (6.9-10.8) Neutrophils (%) (Auto) 58.0 % (37.0-80.0) Lymphocytes (%) (Auto) 30.3 % (10.0-50.0) Monocytes (%) (Auto) 7.8 % (0.0-12.0) Eosinophils (%) (Auto) 3.3 % (0.0-7.0) Basophils (%) (Auto) 0.6 % (0.0-2.0) Neutrophils # (Auto) 4.1 10 ^3/uL (1.6-8.6) Lymphocytes # (Auto) 2.1 10 ^3/uL (0.4-5.4) Monocytes # (Auto) 0.6 10 ^3/uL (0-1.3) Eosinophils # (Auto) 0.2 10 ^3/uL (0-0.8) Basophils # (Auto) 0 10 ^3/uL (0-0.2) Nucleated Red Blood Cells 0.0 % Sodium Level 143 mmol/L (136-145) Potassium Level 3.7 mmol/L (3.5-5.1) Chloride Level 107 mmol/L (98-107) Carbon Dioxide Level 28 mmol/L (20-31) Anion Gap 8 (5-15) Blood Urea Nitrogen 9 mg/dL (9-23) Creatinine 0.62 mg/dL (0.550-1.02) Glomerular Filtration Rate Calc 103 mL/min (>90) BUN/Creatinine Ratio 14.5 (10.0-20.0) Serum Glucose 129 mg/dL (74-106) Hemoglobin A1c 6.9 % A1C (<5.7) Calcium Level 8.7 mg/dL (8.7-10.4) Total Bilirubin 0.4 mg/dL (0.2-1.0) Aspartate Amino Transferase (AST) 19 U/L (13-40) Alanine Aminotransferase (ALT) 22 U/L (7-40) Alkaline Phosphatase 96 U/L (46-116) Total Protein 6.2 g/dL (5.7-8.2) Albumin 3.7 g/dL (3.2-4.8) Triglycerides Level 193 mg/dL (< 150) Cholesterol Level 88 mg/dL (< 200) LDL Cholesterol 36 mg/dL (< 100) HDL Cholesterol 32 mg/dL (40-59) Vitamin B12 Level 265 pg/mL (211-911) Vitamin D 25-Hydroxy 29.1 ng/mL (30.0-100) Thyroid Stimulating Hormone (TSH) 1.67 uIU/mL (0.55-4.78) Urine Color Yellow (Yellow) Urine Clarity Clear (Clear) Urine pH 6.0 (5.0-9.0) Urine Specific [place] 1.022 (1.001-1.035) Urine Protein Trace (Negative) Urine Ketones Negative (Negative) Urine Blood Negative /uL (Negative) Urine Nitrite Negative (Negative) Urine Bilirubin Negative (Negative) Urine Urobilinogen 2 mg/dL (Negative) Urine Leukocyte Esterase Negative /uL (Negative) Urine RBC 1 /hpf (0 - 4) Urine Microscopic WBC 1 /HPF (0-5) Urine Squamous Epithelial Cells Few /hpf (<5) Urine Bacteria Few /hpf (None Seen) Urine Mucus Few (None Seen) Urine Glucose Normal mg/dL (Normal) Other Laboratory Tests 01/22/25 08:54 Brief Hx & Hospital Course: This is a 59-year-old female with a past medical history of chronic back pain, anxiety, type 2 diabetes mellitus, asthma, hyperlipidemia, hypertension, and sciatica who presented to the ER with severe abdominal pain for 2 weeks, worsening around 5:30 PM daily. Pain was rated 10/10, radiating from the left abdomen to the left flank, aggravated by movement, and without relieving factors. Associated symptoms included nausea and vomiting of food contents without blood. She denied hematuria, dysuria, urinary clots, fever, chest pain, shortness of breath, headache, or focal weakness. No recent trauma or sick contacts. She has a history of recurrent nephrolithiasis with three prior lithotripsies, most recent in June 2024. Surgical history includes hysterectomy (2014). Social history: current smoker, denies illicit drug use. No known drug allergies. PCP: Dr. Rome Rodriguez. Hospital Course On arrival, patient was alert and oriented but in moderate distress. Physical exam revealed tenderness over left flank musculature, no costovertebral angle tenderness. Initial management in ER included IV ketorolac, morphine, normal saline, and ondansetron. CT abdomen/pelvis without contrast showed nonobstructing left nephrolithiasis (17 mm, lower pole) without hydronephrosis, hepatosplenomegaly, and a 14 mm left adrenal nodule likely benign adenoma. UA and labs were ordered; urology was consulted. Patient was started on IV fluids, pain control, and antiemetics. DVT prophylaxis with heparin and GI prophylaxis with pantoprazole were initiated. Sliding scale insulin was used for diabetes management; valsartan continued for hypertension. Counseling provided for smoking cessation (>13 minutes). Goals of care discussed (>29 minutes); patient opted for DNR status. Patient is clinically stable and may be discharged home with pain medication. Urology will proceed with left ureteroscopic epic laser lithotripsy and renal stone evacuation on , 01/24/2025, as an outpatient procedure. Outpatient follow-up also recommended for adrenal nodule and hepatosplenomegaly. Physical exam General Appearance: Alert, oriented 3, cooperative, in moderate distress Head Exam: Normal inspection Neck Exam: Normal inspection. Non-tender. Normal alignment Pulmonary/Respiratory: Chest non-tender. Clear bilateral breath sounds, no crackles, no wheezing. Cardiovascular/Chest: Regular rate and rhythm. No murmurs. No JVD. Peripheral Pulses: 2+ Radial (R). 2+ Radial (L). 2+ Pedal (R). 2+ Pedal (L) Abdominal Exam: Soft, normal bowel sounds, tenderness over left flank musculature, no costovertebral angle tenderness Ankle Exam: Negative ankle edema Lower extremities: Negative lower extremity edema Neuro/Mental Status: A&O x4. Coherent. Normal gait and speech; strength 5/5 in all extremities; cranial nerves IIIXII intact; decreased sensation in bilateral lower extremities (4/5). Thoughts/Psych: Normal thought pattern. Appropriate mood and affect. Good judgement and insight Skin Exam: Normal inspection. Normal color. Warm. Dry Condition at Discharge: Stable Final Diagnosis/Problems List Nonobstructing left nephrolithiasis Left adrenal nodule Hepatosplenomegaly Type 2 diabetes mellitus Hyperlipidemia with diabetes Hypertensive kidney disease stage II Anxiety disorder History of asthma Discharge Disposition: Home Discharge Instruct/Medications Diet: Regular Activity: No Restrictions, As Tolerated Follow Up/Referral: Follow up with Urology for left ureteroscope epic laser lithotripsy and renal evacuation on 01/24/2025 as outpatient. Medications: Toradol continue home medications Scheduled PRN Tramadol Hcl (Tramadol Hcl), 50 MG PO TID PRN, (Reported) Discharge Statement: "Patient was advised to return to the ER or call 911 if any headaches, dizziness, shortness of breath, chest pain, abdominal pain, bleeding, fevers, or worsening of medical condition. Patient was counseled about treatment plan, medications, possible side effects, patientverbalized understanding. All questions were answered to the best of my ability. This discharge took greater then 30 minutes in planning, reviewing documentation, counseling the patient, and discussing with other team members." ASSESSMENT ASSESSMENT Assessment Nonobstructing left nephrolithiasis Left adrenal nodule Hepatosplenomegaly Type 2 diabetes mellitus Hyperlipidemia with diabetes Hypertensive kidney disease stage II Anxiety disorder History of asthma Visit Coding STANDARD RES Billing Provider: HAYDEN SINHA Date of Service if different f: Jan 22, 2025 Common Visit Codes: 01800-PSI/OBS DISCH DAY >30min HAYDEN SINHA Jan 22, 2025 16:20
[2025-01-22 17:27] VITALS: BP 144/91; PULSE 70; RESP 16; TEMP 98; O2SAT 95
[2025-01-22] MEDS ORDERED: LIDO5DIS21 TOP (20:00)
== END 2025-01-22 18:15 | disposition home or self-care (01) | DRG 694 ==
LOC: ER 17:52 → OVERFLOW 20:39 → WEST WING 01-22 02:13
PROVIDERS: ADMIT Internal Medicine Geriatric Medicine; ATTEND Internal Medicine Geriatric Medicine
DX: N20.0 Calculus of kidney (principal); E11.22 Type 2 diabetes mellitus with diabetic chronic kidney disease; I12.9 Hypertensive chronic kidney disease with stage 1 through stage 4 chronic kidney disease, or unspecified chronic kidney disease; J45.909 Unspecified asthma, uncomplicated; N18.2 Chronic kidney disease, stage 2 (mild); E78.5 Hyperlipidemia, unspecified; F17.210 Nicotine dependence, cigarettes, uncomplicated; G89.29 Other chronic pain; M54.9 Dorsalgia, unspecified; F41.9 Anxiety disorder, unspecified; Z87.442 Personal history of urinary calculi; Z98.51 Tubal ligation status; Z82.49 Family history of ischemic heart disease and other diseases of the circulatory system; Z90.710 Acquired absence of both cervix and uterus; Z71.6 Tobacco abuse counseling
CPT/HCPCS: 36415; 74176; 80048; 80053; 80061; 81001; 82306; 82607; 82962; 83036; 84443; 85025; 96361; 96374; G0378; J1885

== ENCOUNTER 2025-02-04 12:25 | Inpatient (IN) | payer OTHER ==
[~2025-02-04] VITALS: Ht 162.6 cm; Wt 95.7 kg
[~2025-02-04 12:25] MED LIST: LIDO5DIS21 TOP; TRAM50TA2 PO
--- NOTE | 2025-02-04 12:57 | ED.PDOC ---
General HPI Comments This is a 59 year old female presenting to the ED with chief complaint of flank pain. Patient reports that she had recent left kidney stent placement performed by Dr. Ahumada 2 weeks ago for an obstructing stone noted. Patient relays that she has had no relief and continues to experience left sided flank pain. Patient states she was directed referred by Dr. Ahumada today for admission to undergo lithotripsy and stent removal. Patient notes history of previous kidney surgeries for kidney stones. Patient denies any abdominal pain, dysuria, hematuria, fever, or chills. Chief Complaint: Flank Pain Time Seen by MD: 12:54 Primary Care Provider: CELESTINE Reviewed notes: Nurses Notes, Medications, Allergies Allergies: Coded Allergies: NO KNOWN ALLERGIES (Unverified , 05/08/12) Home Meds Active Scripts Lidocaine (LIDODERM 5% TOPICAL PATCH) 1 Patch Ph, 1 PATCH TOP DAILY, #30 PATCH 1 Refill Prov:ESTEBAN DANIELS RESIDENT 01/22/25 Reported Medications Tramadol Hcl (Tramadol Hcl) 50 Mg Tab, 50 MG PO TID PRN for 10 Days, #30 TAB 01/22/25 Information Source: Patient Mode of Arrival: Ambulatory Severity: Moderate Timing: Days Duration: Since onset Prehospital treatment: None Onset: Spontaneous History of: Kidney stone, Recent post-op Location: (L)Flank Modifying factors: None associated signs and symptoms: Flank Pain Past Medical History PAST MEDICAL HISTORY: Asthma, DM, High Lipids, HTN, Kidney Stones Surgical History: Hysterectomy, Tonsillectomy, Tubal Ligation Surgical History (Other): Kidney stent and kidney stone surgery [employer]PER[employer] History: Denies all [employer] Hx Family History Family History: Reviewed,noncontributory to illness Family History (Other): [place] Social History Smoker: Cigarettes, Less Than 1 Pack/Day Alcohol: Denies ETOH Use Drugs: Denies Drug Use Lives In: Home Constitutional: denies: chills, diaphoresis, fatigue, fever, malaise, sweats, weakness, others EENTM: denies: blurred vision, double vision, ear bleeding, ear discharge, ear drainage, ear pain, ear ringing, eye pain, eye redness, hearing loss, mouth pain, mouth swelling, nasal discharge, nose bleeding, nose congestion, nose pain, photophobia, tearing, throat pain, throat swelling, voice changes, others Respiratory: denies: cough, hemoptysis, orthopnea, SOB at rest, shortness of breath, SOB with excertion, stridor, wheezing, others Cardiovascular: denies: chest pain, dizzy spells, diaphoresis, Dyspnea on exertion, edema, irregular heart beat, left arm pain, lightheadedness, palpitations, PND, syncope, others Gastrointestinal: denies: abdomen distended, abdominal pain, blood streaked bowels, constipated, diarrhea, dysphagia, difficulty swallowing, hematemesis, melena, nausea, poor appetite, poor fluid intake, rectal bleeding, rectal pain, vomiting, others Genitourinary: reports: flank pain; denies: abnormal vagina bleeding, burning, dyspareunia, dysuria, frequency, hematuria, incontinence, pain, , vagina discharge, urgency, others Neurological: denies: dizziness, fainting, headache, left sided numbness, left sided weakness, numbness, paresthesia, pre-existing deficit, right sided numbness, right sided weakness, seizure, speech problems, tingling, tremors, weakness, others Musculoskeletal: denies: back pain, gout, joint pain, joint swelling, muscle pain, muscle stiffness, neck pain, others Integumetry: denies: bruises, change in color, change in hair/nails, dryness, laceration, lesions, lumps, rash, wounds, others Allergic/Immunocompromised: denies: Difficulty Healing, Frequent Infections, Hives, Itching, others Hematologic/Lymphatic: denies: anemia, blood clots, easy bleeding, easy bruising, swollen glands, others Endocrine: denies: excessive hunger, excessive sweating, excessive thirst, excessive urination, flushing, intolerance to cold, intolerance to heat, unexplained weight gain, unexplained weight loss, others Psychiatric: denies: anxiety, bipolar disorder, depression, hopeless, panic disorder, schizophrenia, sleepless, suicidal, others All Other Systems: Reviewed and Negative Physical Exam General Appearance: Moderate Distress HEENT: Normal ENT Inspection, Pharynx Normal, TMs Normal Neck: Full Range of Motion, Non-Tender, Normal, Normal Inspection Respiratory: Chest Non-Tender, Lungs Clear, No Accessory Muscle Use, No Resp iratory Distress, Normal Breath Sounds Cardiovascular: No Edema, No JVD, No Murmur, No Gallop, Normal Peripheral Pulses, Regular Rate/Rhythm Breast Exam: Deferred Gastrointestinal: No Organomegaly, Non Tender, No Pulsatile Mass, Normal Bowel Sounds, Soft Genitalia: Deferred Pelvic: Deferred Rectal: Deferred Extremities: No calf tenderness, Normal capillary refill, No pedal edema Musculoskeletal : Location: Left Extremity Location: Back (Nephrostomy tube in place) Apperance: Limited ROM Neurologic: Alert, welding manager II-XII nml as Tested, No Motor Deficits, Normal Affect, Normal Mood, No Sensory Deficits Cerebellar Function: Normal Reflexes: Normal Skin: Dry, Normal Color, Warm Lymphatic: No Adenopathy Was a procedure done? Was a procedure done?: No Differential Diagnosis Kidney stone (Female): Musculoskeletal pain, Pancreatitis, Pyelonephritis, Strain, Urolithiasis X-Ray, Labs, Meds, VS Vital Signs Date Time Temp Pulse Resp B/P (MAP) Pulse Ox O2 Delivery O2 Flow Rate FiO2 02/04/25 12:29 98.6 64 12 138/72 98 98.6 Lab Test 02/04/25 13:09 Range/Units White Blood Count 13.0 H 4.4-10.8 10^3/uL Red Blood Count 5.93 H 4.0-5.20 10^6/uL Hemoglobin 16.3 H 12.2-16.2 g/dL Hematocrit 48.4 H 36.0-46.0 % Mean Corpuscular Volume 81.6 80.0-100.0 fL Mean Corpuscular Hemoglobin 27.5 L 28.0-32.0 pg Mean Corpuscular Hemoglobin Concent 33.7 32.0-36.0 g/dL Red Cell Distribution Width 15.1 H 11.8-14.3 % Platelet Count 292 140-450 10^3/uL Mean Platelet Volume 7.6 6.9-10.8 fL Neutrophils (%) (Auto) 65.1 37.0-80.0 % Lymphocytes (%) (Auto) 25.5 10.0-50.0 % Monocytes (%) (Auto) 6.2 0.0-12.0 % Eosinophils (%) (Auto) 1.8 0.0-7.0 % Basophils (%) (Auto) 1.4 0.0-2.0 % Neutrophils # (Auto) 8.5 1.6-8.6 10 ^3/uL Lymphocytes # (Auto) 3.3 0.4-5.4 10 ^3/uL Monocytes # (Auto) 0.8 0-1.3 10 ^3/uL Eosinophils # (Auto) 0.2 0-0.8 10 ^3/uL Basophils # (Auto) 0.2 0-0.2 10 ^3/uL Nucleated Red Blood Cells 0.1 % Sodium Level 140 136-145 mmol/L Potassium Level 4.2 3.5-5.1 mmol/L Chloride Level 105 98-107 mmol/L Carbon Dioxide Level 27 20-31 mmol/L Anion Gap 8 5-15 Blood Urea Nitrogen 6 L 9-23 mg/dL Creatinine 0.86 0.550-1.02 mg/dL Glomerular Filtration Rate Calc 78 >90 mL/min BUN/Creatinine Ratio 7.0 L 10.0-20.0 Serum Glucose 101 74-106 mg/dL Calcium Level 10.0 8.7-10.4 mg/dL CT Abd/Pel indicates: 1. No acute abdominopelvic abnormality. 2. Incidental findings as detailed. IV Hep-Lock was established. The patient's CBC is within normal limits except for an elevated white blood cell count of 13.0 The chemistry panel is within normal limits. At this time, the patient is being admitted to the hospitalist The patient understands and agrees with the management Images Reviewed?: Images reviewed and evaluated by me Time of 1ST Reevaluation: 14:47 Reevaluation 1ST: Unchanged Patient Education/Counseling: Diagnosis, Treatment, Prognosis Family Education/Counseling: No Family Present SEPSIS Sepsis Screen Date sepsis recognized/suspect: Feb 04, 2025 Time Sepsis recognized/suspect: 1232 Recent Procedure: No On Antibiotic Therapy: No Respiratory Rate >20: No Heart Rate >90: No Temp<36 C (96.8 F) or >38.3 C: No SBP <90 or MAP <65 mmHG: No New Acute Mental Status Change: No Is the patient on CPAP, BIPAP,: No Physician Orders Urinalysis (02/04/25 12:53) Ct Ab Pel Wo Con-No Oral Or Iv (02/04/25 12:53) Heplock Iv (02/04/25 12:53) Vital Signs Date Time Temp Pulse Resp B/P (MAP) Pulse Ox O2 Delivery O2 Flow Rate FiO2 02/04/25 12:29 98.6 64 12 138/72 98 98.6 Laboratory Tests Test 02/04/25 13:09 White Blood Count 13.0 10^3/uL (4.4-10.8) H Departure 1 Departure Time of Disposition: 14:47 Impression: Primary Impression: Ureterolithiasis Disposition: ADMITTED INPATIENT Admit to: Med Surg Condition: Fair Critical Care Note Critical Care Time?: No Stability Stability form required: Yes Unstable for transfer: ED Physician Assesment (Clinical assesment) Heart Score Heart Score: Heart Score Response (Comments) Value History N/A 0 EKG N/A 0 Age N/A 0 Risk Factors N/A 0 Troponin N/A 0 Total 0 I personally scribed for PAM BEACH MD ([email or web address]) on 02/04/25 at 12:57. Electronically submitted by Ashutosh Delvalle ([email or web address]). I personally scribed for PAM BEACH MD ([email or web address]) on 02/04/25 at 14:06. Electronically submitted by Ashutosh Delvalle ([email or web address]). PAM BEACH MD Feb 04, 2025 12:57
[2025-02-04 13:21] LABS: Hematocrit 48.4 % (36.0-46.0); Hemoglobin 16.3 g/dL (12.2-16.2); Mean Corpuscular Hemoglobin 27.5 pg (28.0-32.0); Mean Corpuscular Volume 81.6 fL (80.0-100.0); Nucleated Red Blood Cells % 0.1 %
[2025-02-04 13:26] LABS: Chloride 105 mmol/L (98-107); Potassium 4.2 mmol/L (3.5-5.1); Sodium 140 mmol/L (136-145)
[2025-02-04 13:27] LABS: Anion Gap 8 (5-15); Calcium 10.0 mg/dL (8.7-10.4); Carbon Dioxide 27 mmol/L (20-31)
[2025-02-04 13:32] LABS: BUN/Creatinine Ratio 7.0 (10.0-20.0); Blood Urea Nitrogen 6 mg/dL (9-23); Glucose 101 mg/dL (74-106)
--- NOTE | 2025-02-04 13:52 | DVH ---
EXAM: CT CT AB PEL WO CON-NO ORAL OR IV HISTORY: right flank pain COMPARISON STUDY: CT CT AB PEL WO CON-NO ORAL OR IV on DOS: 01/21/25 TECHNIQUE: Multidetector CT of the abdomen and pelvis was performed from lung bases to pubic symphysis. Imaging was performed without IV contrast. Axial, coronal, and sagittal multiplanar reformats were obtained from the axial data set by the technologist. RADIATION DOSE: CTDI vol 25.6 mGy. DLP 1435.9 mGy.cm FINDINGS: Limited evaluation of the solid organs in the absence of IV contrast. Lungs: Minimal scarring/atelectasis. Liver: Mild hepatomegaly measuring up to 19.6 cm. Spleen: Mild splenomegaly measuring up to 13.6 cm. Pancreas: Unremarkable. Gallbladder: Unremarkable. Adrenals: 13 mm probable left adrenal adenoma. Kidneys: A left nephroureteral stent is noted. No obstructing calculus is seen. Nonobstructing left renal calculi are noted. The right kidney is unremarkable. There is mild left renal cortical atrophy / scarring. Pelvic Viscera: The urinary bladder is decompressed. Prior hysterectomy. Vasculature: Atherosclerotic aortoiliac calcification. Retroperitoneum: Unremarkable. Bowel: No bowel obstruction. The appendix is normal. Musculoskeletal: Unremarkable. Soft tissues: Unremarkable IMPRESSION: 1. No acute abdominopelvic abnormality. 2. Incidental findings as detailed.
[2025-02-04] MEDS ORDERED: NITROGLYCERIN 0.4 MG SL TAB SL PRN (14:15)
[2025-02-04] MEDS ORDERED: MORPHINE SULFATE INJ 2 MG/ml SYRG IV PRN ×2 (14:15)
[2025-02-04] MEDS ORDERED: VANCOMYCIN PER PHARMACY 0 MG IV SCH (14:15)
[2025-02-04] MEDS ORDERED: ACETAMINOPHEN 325 MG TAB PO PRN (14:15)
[2025-02-04] MEDS ORDERED: ONDANSETRON HCL 4 MG/2 ML VIAL IV PRN (14:15)
--- NOTE | 2025-02-04 14:15 | DVHHPRES ---
History of Present Illness Resident Creating Document: DIONICIO DUNBAR RESIDENT History of Present Illness Lenora Moss, patient A 59?year?old female with a history of multiple kidney stones, asthma, diabetes, hyperlipidemia, hypertension, dyslipidemia, and prior hysterectomy presents ambulatory to the ED with several days of persistent left?sided flank pain following a left kidney stent placement by Dr. Ahumada two weeks ago for an obstructing stone, reporting no symptom relief and stating she was sent in today for planned admission for lithotripsy and stent removal, , and denying abdominal pain, dysuria, hematuria, fever, or chills. PMHx: Asthma, DM, dyslipidemia, HTN, Kidney Stones, anxiety depression PSHx: Hysterectomy, Tonsillectomy, Tubal Ligation, Kidney stent and kidney stone surgery Family history: Reviewed, noncontributory to illness Social history: The patient smokes fewer than one pack of cigarettes per day, denies alcohol and drug use, and lives at home. Review of Systems Constitutional: Yes: Fever, Chills, Malaise; No: Sweats, Weakness, Other Eyes: No: Pain, Vision change, Conjunctivae inflammation, Eyelid inflammation, Other, Redness Respiratory: No: Cough, Dry, Shortness of breath, SOB with excertion, Wheezing, Hemoptysis, Pleuritic Pain, Sputum, Wheezing, Other Cardiovascular: No: Chest Pain, Palpitations, Orthopnea, Paroxysmal Noc. Dyspnea, Edema, Lt Headedness, Other Gastrointestinal: No: Nausea, Vomiting, Abdominal Pain, Diarrhea, Constipation, Melena, Hematochezia, Other Genitourinary: Dysuria, Frequency; No Incontinence, No Hematuria, No Retention, No Other Musculoskeletal: No: other, neck pain, shoulder pain, arm pain, back pain, hand pain, leg pain, foot pain Skin: No: Rash, Lesions, Jaundice, Bruising, Other Neurological: No: Weakness, Numbness, Incoordination, Change in speech, Confusion, Seizures, Other Allergies: Coded Allergies: NO KNOWN ALLERGIES (Unverified , 05/08/12) Medications Current Medications Medications Dose Ordered Sig/Shannon Route Start Time Stop Time Status Last Admin Dose Admin Sodium Chloride 1,000 ml @ 120 mls/hr Q8H20M IV 02/04/25 14:15 UNV Acetaminophen/ Hydrocodone Bitart 1 tab Q4HP PRN PO 02/04/25 14:15 UNV Ondansetron HCl 4 mg Q4HP PRN IV 02/04/25 14:15 UNV Docusate Sodium 100 mg BIDPRN PRN PO 02/04/25 14:15 UNV Acetaminophen 650 mg Q6HP PRN PO 02/04/25 14:15 UNV Morphine Sulfate 2 mg Q4HPRN PRN IV 02/04/25 14:15 UNV Nitroglycerin 0.4 mg Q5MINP PRN SL 02/04/25 14:15 UNV Morphine Sulfate 2 mg Q30M PRN IV 02/04/25 14:15 UNV Cefepime HCl 50 ml @ 50 mls/hr DAILY IV 02/04/25 14:15 UNV Vancomycin HCl 0 ml @ 0 mls/hr PER PHARMACY IV 02/04/25 14:15 UNV Exam Vital Signs Vital Signs Date Time Temp Pulse Resp B/P (MAP) Pulse Ox O2 Delivery O2 Flow Rate FiO2 02/04/25 12:29 98.6 64 12 138/72 98 98.6 General Appearance: Alert, Oriented X3, Cooperative, mild distress HEENT: Atraumatic, PERRLA, EOMI, Mucous membr. moist/pink Respiratory: Clear to auscultation, Normal air movement Cardiovascular: Regular rate, Normal S1, Normal S2, No murmurs Abdominal: Normal bowel sounds, Soft, No hepatospenomegaly, No masses, Other (suprapubic and left CVA angle tenderness) Extremities: No clubbing, No cyanosis, No edema, Normal pulses, No tenderness/swelling Skin: No rashes, No breakdown, No significant lesion Neuro: Normal gait, Normal speech, Strength at 5/5 X4 ext, Normal tone, Sensation intact, Cranial nerves 3-12 NL, Reflexes 2+ Psych/Mental Status: Mental status NL, Mood NL Labs/Xrays Labs Test 02/04/25 13:09 Range/Units White Blood Count 13.0 H 4.4-10.8 10^3/uL Red Blood Count 5.93 H 4.0-5.20 10^6/uL Hemoglobin 16.3 H 12.2-16.2 g/dL Hematocrit 48.4 H 36.0-46.0 % Mean Corpuscular Volume 81.6 80.0-100.0 fL Mean Corpuscular Hemoglobin 27.5 L 28.0-32.0 pg Mean Corpuscular Hemoglobin Concent 33.7 32.0-36.0 g/dL Red Cell Distribution Width 15.1 H 11.8-14.3 % Platelet Count 292 140-450 10^3/uL Mean Platelet Volume 7.6 6.9-10.8 fL Neutrophils (%) (Auto) 65.1 37.0-80.0 % Lymphocytes (%) (Auto) 25.5 10.0-50.0 % Monocytes (%) (Auto) 6.2 0.0-12.0 % Eosinophils (%) (Auto) 1.8 0.0-7.0 % Basophils (%) (Auto) 1.4 0.0-2.0 % Neutrophils # (Auto) 8.5 1.6-8.6 10 ^3/uL Lymphocytes # (Auto) 3.3 0.4-5.4 10 ^3/uL Monocytes # (Auto) 0.8 0-1.3 10 ^3/uL Eosinophils # (Auto) 0.2 0-0.8 10 ^3/uL Basophils # (Auto) 0.2 0-0.2 10 ^3/uL Nucleated Red Blood Cells 0.1 % Sodium Level 140 136-145 mmol/L Potassium Level 4.2 3.5-5.1 mmol/L Chloride Level 105 98-107 mmol/L Carbon Dioxide Level 27 20-31 mmol/L Anion Gap 8 5-15 Blood Urea Nitrogen 6 L 9-23 mg/dL Creatinine 0.86 0.550-1.02 mg/dL Glomerular Filtration Rate Calc 78 >90 mL/min BUN/Creatinine Ratio 7.0 L 10.0-20.0 Serum Glucose 101 74-106 mg/dL Calcium Level 10.0 8.7-10.4 mg/dL SEPSIS Sepsis Screen Date sepsis recognized/suspect: Feb 04, 2025 Time Sepsis recognized/suspect: 1232 Recent Procedure: No On Antibiotic Therapy: No Respiratory Rate >20: No Heart Rate >90: No Temp<36 C (96.8 F) or >38.3 C: No SBP <90 or MAP <65 mmHG: No New Acute Mental Status Change: No Is the patient on CPAP, BIPAP,: No Physician Orders Urinalysis (02/04/25 12:53) Ct Ab Pel Wo Con-No Oral Or Iv (02/04/25 12:53) Heplock Iv (02/04/25 12:53) Admit (02/04/25 14:05) Allergies (02/04/25 14:05) Code Status (02/04/25 14:05) Sodium Chloride 0.9% (02/04/25 14:15) Hydrocodone-Acet 5/325mg Tab ([place] 5/32 (02/04/25 14:15) Ondansetron Hcl (Zofran) (02/04/25 14:15) Docusate Sodium Capsule (Colace Capsule) (02/04/25 14:15) Complete Blood Count (02/05/25 04:00) Comprehensive Metabolic Panel (02/05/25 04:00) Cardiac Diet-2gna,Lofat,Lochol (02/04/25 Dinner) Condition: Serious (02/04/25 14:05) Acetaminophen Tablet (Tylenol Tablet) (02/04/25 14:15) Morphine Sulfate Injection (02/04/25 14:15) Sequential Compression Device (02/04/25 ) Nitroglycerin Sublingual (Ntrostat Subli (02/04/25 14:15) Morphine Sulfate Injection (02/04/25 14:15) Oxygen By Nasal Cannula (02/04/25 14:05) Stat Ekg For Chest Pain (02/04/25 14:05) Notify Of Changes From Base (02/04/25 14:05) Website Designer For 24 Hours (02/04/25 14:05) Emergency Dysrhythmia Protocol (02/04/25 14:05) Rhythm Strips Once Every Shift (02/04/25 14:05) Urinalysis (02/04/25 14:05) Urine Bacterial Culture (02/04/25 14:05) Kidney (02/04/25 14:05) Cefepime 1gm/50ml (Maxipime 1gm/50ml) (02/04/25 14:15) Vancomycin Per Pharmacy (02/04/25 14:15) Vital Signs Date Time Temp Pulse Resp B/P (MAP) Pulse Ox O2 Delivery O2 Flow Rate FiO2 02/04/25 12:29 98.6 64 12 138/72 98 98.6 Laboratory Tests Test 02/04/25 13:09 White Blood Count 13.0 10^3/uL (4.4-10.8) H Assessment/Plan Assessment/Plan # Acute complicated UTI: Recent instrumentation with stent placement, who obstruction secondary due to stone, given recent instrumentation, culture to fol low, also we will add IV vancomycin along with the cefepime to cover for both Gram-positive and Gram-negative. # Obstructive renal stones: Previously patient was evaluated by Urology, was plan with stent placement and eventual outpatient surgical management/ resolution, patient comes with acute renal colic, CT and ultrasound completed with 1.8 cm of stone proximal to the stent, unable to pass, needs further evaluation, intervention by urologist. # Sepsis secondary due to UTI: SIRS criteria with a active infection with elevated white count and tachycardia, afebrile, hemodynamically otherwise stable, IV fluid, sepsis bundle with blood and urine culture to follow, check lactate and ruled out other sources of infection. # Essential hypertension: Valsartan 320 mg tablet, # grade 2 obesity: BMI 36.2, weight loss counseling, patient on Ozempic. Tanya nue. # known asthma: PRN nebs, last known exacerbation around October this year. # chronic back pain: on duloxetine 60 mg daily continue, # Dyslipidemia: on rosuvastatin 20 mg daily, continue at discharge # restless leg syndrome: On ropinirole 4 mg daily, continue # Anxiety/depression: Bupropion 150 mg, previously # type 2 diabetes mellitus: patient on Ozempic, HbA1c unknown check. # nicotine abuse: active smoking, 30 pack-year smoking history, 1 pack per day, 14 mg as needed nicotine patch, 11 minutes smoking cessation counseling done bedside. PUD prophylaxis: protonix 40mg/not needed DVT prophylaxis: Levonox 40mg/brisk movement. Barriers to discharge: Medical diagnosis and management in progress. Patient lives with self / family. Independent/need supportive device/wheelchair/person support for ADL. PT and SW consult as needed. PCP: Dr. Rodriguez Specialist Relevant To Admission: urologist, consulted Dr. Ahumada. Case discussed with Dr. Mckenzie Code Status: Full Code. Discussion for goals of care and the care plan the case needed total 31 minutes bedside. Plan discussed with: Patient My Orders Orders - DIONICIO DUNBAR RESIDENT Procedure Category Date Status Time Admit ADMIT 02/04/25 Transmitted 14:05 Allergies STORM 02/04/25 In Process 14:05 Code Status CODE 02/04/25 Transmitted 14:05 Sodium Chloride 0.9% PHA 02/04/25 Logged 14:15 Hydrocodone-Acet PHA 02/04/25 Logged 5/325mg Tab ([place] 14:15 Ondansetron Hcl PHA 02/04/25 Logged (Zofran) 14:[address] [facility] 02/04/25 Logged Capsule (Colace 14:15 Complete Blood Count LAB 02/05/25 Verified 04:00 Comprehensive LAB 02/05/25 Verified Metabolic Panel 04:00 Cardiac DIET 02/04/25 Transmitted Diet-2gna,Lofat,Lochol Dinner Condition: Serious [facility] 02/04/25 In Process 14:[address] [facility] 02/04/25 Logged (Tylenol Tablet) 14:[address] [facility] 02/04/25 Logged Injection 14:15 Sequential [facility] 02/04/25 In Process Compression Device Nitroglycerin [facility] 02/04/25 Logged Sublingual (Ntrostat 14:[address] [facility] 02/04/25 Logged Injection 14:15 Oxygen By Nasal RT 02/04/25 Transmitted Cannula 14:05 Stat Ekg For Chest [facility] 02/04/25 In Process Pain 14:05 Notify Md Of Changes [facility] 02/04/25 In Process From Base 14:05 Website Designer For [facility] 02/04/25 In Process 24 Hours 14:05 Emergency Dysrhythmia [facility] 02/04/25 In Process Protocol 14:05 Rhythm Strips Once [facility] 02/04/25 In Process Every Shift 14:05 Urinalysis LAB 02/04/25 Logged 14:05 Urine Bacterial [facility] 02/04/25 Logged Culture 14:05 Kidney US 02/04/25 Logged 14:05 Cefepime 1gm/50ml [facility] 02/04/25 Logged (Maxipime 1gm/50ml) 14:[address] [facility] 02/04/25 Logged Pharmacy 14:15 Visit Coding STANDARD RES Billing Provider: MELA MCKENZIE MD Date of Service if different f: Feb 04, 2025 Common Visit Codes: 04771-[id number] INP/OBS CARE (HIGH) Secondary Visit Codes: 38861-[id number] CARE PLAN 30 MINUTES DIONICIO DUNBAR RESIDENT Feb 04, 2025 14:15
[2025-02-04] MEDS ORDERED: VANCOMYCIN 1GM/250ML KIT 250 ML IV SCH (14:45)
--- NOTE | 2025-02-04 16:12 | DVH ---
INDICATION: Renal stone hisotory with stent TECHNIQUE: Multiple real-time sonographic images of the kidneys and bladder were obtained. COMPARISON: None FINDINGS: The right kidney measures 11.5 cm in length, which is normal in size. There is normal echogenicity of the right kidney. No hydronephrosis. The left kidney measures 10.6 cm in length, which is normal in size. Cholelithiasis on the left. Possible increased cortical echogenicity is noted. There is a solid echogenic focus in the left kidney measuring 1.6 x 0.8 x 1.8 cm possible calculus. No large intraluminal masses are seen in the bladder. Right ureteral jet noted in the bladder. Left ureteral jet was not visualized. Prior to voiding the bladder volume measures volume 41 mL Questionable stent noted in the bladder. Echogenic findings is poorly visualized. According to a CT abdomen and pelvis done 02/04/2025 a left ureteral stent is present. IMPRESSION: 1. 11.5 cm long right kidney. 10.6 cm long left kidney. 2. Nephrolithiasis on the left. 3. Increased echogenicity of the left renal cortex 4. 1.6 x 0.8 x 1.8 cm calculus in the left kidney.
[2025-02-04] MEDS: SODIUM CHLORIDE 0.9% 1,000 ML IV SCH (16:36)
[2025-02-04] MEDS: ONDANSETRON HCL 4 MG/2 ML VIAL IV ONE (16:37)
[2025-02-04] MEDS: VANCOMYCIN 1GM/250ML KIT 250 ML IV SCH (16:37)
[2025-02-04] MEDS: MORPHINE SULFATE 4 MG/ML SYR/VIAL IV ONE (16:43)
[2025-02-04] MEDS ORDERED: IPRATROPIUM BROM 0.5 MG/2.5ML INH SOL NEB PRN (18:30)
[2025-02-04] MEDS ORDERED: ALBUTEROL SULF 2.5 MG/0.5ML(0.5%) NEB SOLN NEB PRN (18:30)
[2025-02-04] MEDS ORDERED: ROPI4TAB23 PO (19:17)
[2025-02-04] MEDS: ALBUTEROL SULF 2.5 MG/0.5ML(0.5%) NEB SOLN ONE (19:28)
[2025-02-04 19:58] VITALS: O2SAT 99
[2025-02-04 19:59] VITALS: PULSE 50; RESP 20; O2SAT 99
[2025-02-04 20:11] LABS: Urine Protein, UAD Negative (Negative)
[2025-02-04] MEDS: ENOXAPARIN SOD 40 MG/0.4 ML SYRINGE SC ONE (20:38)
[2025-02-04] MEDS: CEFEPIME 1GM/50ML 50 ML IV ONE (20:38)
[2025-02-04] MEDS: LIDOCAINE 5% TOPICAL PATCH TOP ONE (20:39)
[2025-02-04] MEDS: CEFEPIME 1GM/50ML 50 ML IV SCH (20:41)
[2025-02-04] MEDS: FAMOTIDINE (10MG/ML) 2ML VL IV SCH (22:00)
[2025-02-04] MEDS: HYDROcodone-ACET 5/325MG TAB PO PRN (22:35)
[2025-02-04] MEDS: PREGABALIN CAPSULE 75 MG CAP PO SCH (22:55)
[2025-02-04 23:00] VITALS: BP 101/47; PULSE 98; RESP 18; TEMP 98.6; O2SAT 97
[2025-02-04 23:03] VITALS: PULSE 74; RESP 18
[2025-02-04] MEDS: HYDROmorphone HCL 2 MG/ML VL/or syr IV ONE (23:52)
[2025-02-05] VITALS (11 sets, daily range): BP systolic 91–134; BP diastolic 53–77; PULSE 71–87; RESP 15–18; TEMP 97.1–98.4; O2SAT 86–98
[2025-02-05 06:10] LABS: Alanine Aminotransferase 16 U/L (7-40); Albumin 3.7 g/dL (3.2-4.8); Alkaline Phosphatase 90 U/L (46-116); Anion Gap 9 (5-15); BUN/Creatinine Ratio 7.4 (10.0-20.0); Carbon Dioxide 24 mmol/L (20-31); Potassium 3.9 mmol/L (3.5-5.1); Sodium 141 mmol/L (136-145); Total Protein 6.1 g/dL (5.7-8.2)
[2025-02-05 06:11] LABS: Bilirubin, Total 0.4 mg/dL (0.2-1.0)
[2025-02-05 06:12] LABS: Hematocrit 43.7 % (36.0-46.0); Hemoglobin 14.2 g/dL (12.2-16.2); Mean Corpuscular Hemoglobin 27.3 pg (28.0-32.0); Mean Corpuscular Volume 84.1 fL (80.0-100.0); Nucleated Red Blood Cells % 0.1 %
[2025-02-05 06:15] LABS: Blood Urea Nitrogen 7 mg/dL (9-23); Calcium 8.6 mg/dL (8.7-10.4); Chloride 108 mmol/L (98-107); Glucose 177 mg/dL (74-106)
--- NOTE | 2025-02-05 09:16 | DVHINCON2 ---
Date of service: Feb 05, 2025 Referring Physician Patient was sent to [facility] from my office yesterday for management of intractable left flank pain due to stent intolerance and residual kidney stone Reason for Consultation Left flank pain History of Present Illness 59 year old female sent to [facility] for direct admission with the management of left nephrolithiasis. She has left ureteral stent and has significant discomfort from it. She will undergo left ureteroscope epic laser lithotripsy with renal evacuation and stent removal today. Chief Complaint: Flank Pain Primary Care Provider: CELESTINE Mejias notes: Nurses Notes, Medications, Allergies Allergies: Coded Allergies: NO KNOWN ALLERGIES (Unverified , 05/08/12) Home Meds Active Scripts Lidocaine (LIDODERM 5% TOPICAL PATCH) 1 Patch Ph, 1 PATCH TOP DAILY, #30 PATCH 1 Refill Prov:ESTEBAN DANIELS RESIDENT 01/22/25 Reported Medications Tramadol Hcl (Tramadol Hcl) 50 Mg Tab, 50 MG PO TID PRN for 10 Days, #30 TAB 01/22/25 Information Source: Patient Mode of Arrival: Ambulatory Severity: Moderate Timing: Days Duration: Since onset Prehospital treatment: None Onset: Spontaneous History of: Kidney stone, Recent post-op Location: (L)Flank Modifying factors: None associated signs and symptoms: Flank Pain Past Medical History Past Medical History Past Medical History Asthma, DM, High Lipids, HTN, Kidney Stones Past Surgical History Hysterectomy, Tonsillectomy, Tubal Ligation Surgical History (Other): Kidney stent and kidney stone surgery DIGITAL PRODUCER History: Denies all DIGITAL PRODUCER Hx Family History: Coronary thrombosis G8 MOTHER Allergies: Coded Allergies: NO KNOWN ALLERGIES (Unverified , 05/08/12) Home Meds Active Scripts Lidocaine (LIDODERM 5% TOPICAL PATCH) 1 Patch Ph, 1 PATCH TOP DAILY, #30 PATCH 1 Refill Prov:ESTEBAN DANIELS RESIDENT 01/22/25 Reported Medications Ropinirole Hydrochloride (Ropinirole Hcl) 4 Mg Tab, 1 TAB PO 02/04/25 Tramadol Hcl (Tramadol Hcl) 50 Mg Tab, 50 MG PO TID PRN for 10 Days, #30 TAB 01/22/25 Current Medications Current Medications Medications (Trade) Dose Ordered Sig/Shannon Route PRN Reason Start Time Stop Time Status Last Admin Sodium Chloride 1,000 ml @ 120 mls/hr Q8H20M IV 02/04/25 14:15 02/05/25 08:37 Acetaminophen/ Hydrocodone Bitart (Reynolds 5/325MG Tab) 1 tab Q4HP PRN PO MODERATE PAIN (4-6 PAIN SCALE) 02/04/25 14:15 02/05/25 08:35 Ondansetron HCl (Zofran) 4 mg Q4HP PRN IV NAUSEA / VOMITING 02/04/25 14:15 Docusate Sodium (Colace Capsule) 100 mg BIDPRN PRN PO FOR CONSTIPATION 02/04/25 14:15 Acetaminophen (Tylenol Tablet) 650 mg Q6HP PRN PO PAIN SCALE 1-3 OR TEMP>100.4 02/04/25 14:15 Morphine Sulfate 2 mg Q4HPRN PRN IV SEVERE PAIN (7-10 PAIN SCALE) 02/04/25 14:15 02/05/25 08:58 DC Nitroglycerin (Ntrostat Sublingual) 0.4 mg Q5MINP PRN SL FOR CHEST PAIN 02/04/25 14:15 Morphine Sulfate 2 mg Q30M PRN IV FOR CHEST PAIN 02/04/25 14:15 Vancomycin HCl 0 ml @ 0 mls/hr PER PHARMACY IV 02/04/25 14:15 Vancomycin HCl 250 ml @ 250 mls/hr Q1H IV 02/04/25 14:45 02/04/25 15:15 DC Cefepime HCl 50 ml @ 12.5 mls/hr Q8HR IV 02/04/25 22:00 02/05/25 06:54 Vancomycin HCl 250 ml @ 250 mls/hr Q12H IV 02/04/25 16:00 02/05/25 04:25 Ipratropium [place] (Atrovent Medneb) 0.5 mg Q6HPRN PRN NEB SHORTNESS OF BREATH 02/04/25 18:30 Albuterol (Ventolin Medneb) 2.5 mg Q6HPRN PRN NEB SHORTNESS OF BREATH 02/04/25 18:30 Duloxetine HCl (Cymbalta Capsule) 60 mg DAILY PO 02/05/25 10:00 Pregabalin (Lyrica Capsule) 150 mg BID PO 02/04/25 22:00 02/04/25 22:55 Lidocaine (Lidoderm 5% Topical Patch) 1 patch DAILY TOP 02/05/25 10:00 Enoxaparin Sodium (Lovenox) 40 mg DAILY SC 02/05/25 10:00 Famotidine (Pepcid Injection) 20 mg Q12HR IV 02/04/25 22:00 Nicotine (Nicoderm 14MG/ 24HR) 1 patch DAILY TD 02/05/25 10:00 Hydromorphone HCl (Dilaudid Injection) 0.5 mg Q4HPRN PRN IV SEVERE PAIN (7-10 PAIN SCALE) 02/05/25 09:00 Review of Systems Constitutional: denies: chills, diaphoresis, fatigue, fever, malaise, sweats, weakness, others EENTM: denies: blurred vision, double vision, ear bleeding, ear discharge, ear drainage, ear pain, ear ringing, eye pain, eye redness, hearing loss, mouth pain, mouth swelling, nasal discharge, nose bleeding, nose congestion, nose pain, photophobia, tearing, throat pain, throat swelling, voice changes, others Respiratory: denies: cough, hemoptysis, orthopnea, SOB at rest, shortness of breath, SOB with excertion, stridor, wheezing, others Cardiovascular: denies: chest pain, dizzy spells, diaphoresis, Dyspnea on exertion, edema, irregular heart beat, left arm pain, lightheadedness, palp itations, PND, syncope, others Gastrointestinal: denies: abdomen distended, abdominal pain, blood streaked bowels, constipated, diarrhea, dysphagia, difficulty swallowing, hematemesis, melena, nausea, poor appetite, poor fluid intake, rectal bleeding, rectal pain, vomiting, others Genitourinary: reports: flank pain; denies: abnormal vagina bleeding, burning, dyspareunia, dysuria, frequency, hematuria, incontinence, pain, , vagina discharge, urgency, others Neurological: denies: dizziness, fainting, headache, left sided numbness, left sided weakness, numbness, paresthesia, pre-existing deficit, right sided numbness, right sided weakness, seizure, speech problems, tingling, tremors, weakness, others Musculoskeletal: denies: back pain, gout, joint pain, joint swelling, muscle pain, muscle stiffness, neck pain, others Integumetry: denies: bruises, change in color, change in hair/nails, dryness, laceration, lesions, lumps, rash, wounds, others Allergic/Immunocompromised: denies: Difficulty Healing, Frequent Infections, Hives, Itching, others Hematologic/Lymphatic: denies: anemia, blood clots, easy bleeding, easy bruising, swollen glands, others Endocrine: denies: excessive hunger, excessive sweating, excessive thirst, excessive urination, flushing, intolerance to cold, intolerance to heat, unexplained weight gain, unexplained weight loss, others Psychiatric: denies: anxiety, bipolar disorder, depression, hopeless, panic disorder, schizophrenia, sleepless, suicidal, others All Other Systems: Reviewed and Negative Vital Signs Vital Signs Date Time Temp Pulse Resp B/P (MAP) Pulse Ox O2 Delivery O2 Flow Rate FiO2 02/05/25 07:07 95 Room Air* 0 21 02/05/25 05:00 98.3 71 16 96/67 (77) 98.3 Physical Exam General Appearance: Moderate Distress HEENT: Normal ENT Inspection, Pharynx Normal, TMs Normal Neck: Full Range of Motion, Non-Tender, Normal, Normal Inspection Respiratory: Chest Non-Tender, Lungs Clear, No Accessory Muscle Use, No Respiratory Distress, Normal Breath Sounds Cardiovascular: No Edema, No JVD, No Murmur, No Gallop, Normal Peripheral Pulses, Regular Rate/Rhythm Breast Exam: Deferred Gastrointestinal: No Organomegaly, Non Tender, No Pulsatile Mass, Normal Bowel Sounds, Soft Genitalia: Deferred Pelvic: Deferred Rectal: Deferred Extremities: No calf tenderness, Normal capillary refill, No pedal edema Musculoskeletal : Location: Left Extremity Location: Back (Nephrostomy tube in place) Apperance: Limited ROM Neurologic: Alert, machine loader II-XII nml as Tested, No Motor Deficits, Normal Affect, Normal Mood, No Sensory Deficits Cerebellar Function: Normal Reflexes: Normal Skin: Dry, Normal Color, Warm Lymphatic: No Adenopathy Labs/Diagnostic Data Labs Test 02/05/25 09:06 02/05/25 04:53 02/04/25 19:25 02/04/25 18:53 Range/Units White Blood Count 9.4 # 4.4-10.8 10^3/uL Red Blood Count 5.19 4.0-5.20 10^6/uL Hemoglobin 14.2 12.2-16.2 g/dL Hematocrit 43.7 36.0-46.0 % Mean Corpuscular Volume 84.1 80.0-100.0 fL Mean Corpuscular Hemoglobin 27.3 L 28.0-32.0 pg Mean Corpuscular Hemoglobin Concent 32.4 32.0-36.0 g/dL Red Cell Distribution Width 15.4 H 11.8-14.3 % Platelet Count 198 140-450 10^3/uL Mean Platelet Volume 7.9 6.9-10.8 fL Neutrophils (%) (Auto) 55.2 37.0-80.0 % Lymphocytes (%) (Auto) 34.0 10.0-50.0 % Monocytes (%) (Auto) 8.0 0.0-12.0 % Eosinophils (%) (Auto) 2.4 0.0-7.0 % Basophils (%) (Auto) 0.4 0.0-2.0 % Neutrophils # (Auto) 5.2 1.6-8.6 10 ^3/uL Lymphocytes # (Auto) 3.2 0.4-5.4 10 ^3/uL Monocytes # (Auto) 0.7 0-1.3 10 ^3/uL Eosinophils # (Auto) 0.2 0-0.8 10 ^3/uL Basophils # (Auto) 0 0-0.2 10 ^3/uL Nucleated Red Blood Cells 0.1 % Sodium Level 141 136-145 mmol/L Potassium Level 3.9 3.5-5.1 mmol/L Chloride Level 108 H 98-107 mmol/L Carbon Dioxide Level 24 20-31 mmol/L Anion Gap 9 5-15 Blood Urea Nitrogen 7 L 9-23 mg/dL Creatinine 0.95 0.550-1.02 mg/dL Glomerular Filtration Rate Calc 69 >90 mL/min BUN/Creatinine Ratio 7.4 L 10.0-20.0 Serum Glucose 177 H 74-106 mg/dL Calcium Level 8.6 L 8.7-10.4 mg/dL Total Bilirubin 0.4 0.2-1.0 mg/dL Aspartate Amino Transferase (AST) 14 13-40 U/L Alanine Aminotransferase (ALT) 16 7-40 U/L Alkaline Phosphatase 90 46-116 U/L Total Protein 6.1 5.7-8.2 g/dL Albumin 3.7 3.2-4.8 g/dL Urine Color Light-yellow Yellow Urine Clarity Clear Clear Urine pH 5.5 5.0-9.0 Urine Specific [place] 1.006 1.001-1.035 Urine Protein Negative Negative Urine Ketones Negative Negative Urine Blood Negative Negative /uL Urine Nitrite Negative Negative Urine Bilirubin Negative Negative Urine Urobilinogen Normal Negative mg/dL Urine Leukocyte Esterase 1+ Negative /uL Urine RBC 1 0 - 4 /hpf Urine Microscopic WBC 3 0-5 /HPF Urine Squamous Epithelial Cells Few <5 /hpf Urine Bacteria Few H None Seen /hpf Urine Glucose Normal Normal mg/dL Lactic Acid Level 0.7 0.4-2.0 mmol/L Assessment Left nephrolithiasis Left ureteral stent Intractable left flank pain Plan/Recommendation Left ureteroscopic laser lithotripsy with renal evacuation using CVAC and stent removal Plan discussed with: Patient, Other WALTER LIZ MD Feb 05, 2025 09:16
[2025-02-05] MEDS: LIDOCAINE 5% TOPICAL PATCH TOP SCH (10:00)
[2025-02-05] MEDS: ENOXAPARIN SOD 40 MG/0.4 ML SYRINGE SC SCH (10:00)
[2025-02-05 10:12] LABS: INR 1.03 (0.9-1.15); Partial Thromboplastin Time 27.0 SEC (24.5-34.5); Prothrombin Time 10.9 sec (9.3-11.8)
[2025-02-05] MEDS: NICOTINE 14 MG/24HR TOPICAL PATCH TD SCH (12:40)
[2025-02-05] MEDS: HYDROmorphone HCL 2 MG/ML VL/or syr IV PRN (12:41)
--- NOTE | 2025-02-05 14:04 | DVH ---
CHEST RADIOGRAPH INDICATION: protocol for procedure TECHNIQUE: Single frontal view of the chest was obtained COMPARISON: None FINDINGS: Lines and Tubes: None Lungs: No focal consolidation. Pleura: No effusion. No pneumothorax. Cardiomediastinal contours: Unremarkable Bones: No acute osseous abnormality. IMPRESSION: 1. No acute cardiopulmonary disease.
--- NOTE | 2025-02-05 14:23 | DVHPNRES ---
Progress Note Date Seen: Feb 05, 2025 Resident Creating Document: SARY PRICE RESIDENT Medical Necessity Reason Pt with a Central, PICC or Fol: No Subjective Review of Systems Patient is 59 years old female with a past medical history of hypertension, diabetes mellitus type 2, hyperlipidemia, recurrent renal stone, asthma was sent from urologist Dr. Ahumada's office due to stent intolerance and residual kidney stone. Dr. Ahumada planned for Left ureteroscopic laser lithotripsy with renal evacuation using CVAC and stent removal. As per patient she has recurrent kidney stone. She was recently discharged from [facility] after being diagnosed with a left renal stone, patient was seen by Urology with the time and Urology commended for left ureteroscopic epic laser lithotripsy and renal stone evacuation on , 01/24/2025, as an outpatient procedure. Procedure was done at the time but post procedure patient keep having pain in the left flank. Patient also complained of intermittent dysuria. Initial lab workup revealed leukocytosis with WBC 13.0, urinalysis positive for leukocyte esterase 1+, WBC 3, bacteria few. CT scan of the abdomen and pelvis revealed left nephroureteral stent is noted. No obstructing calculus is seen. 13 mm probable left adrenal adenoma. Renal ultrasound revealed 1.6 x 0.8 x 1.8 cm calculus in the left kidney. PMH-hypertension, diabetes mellitus type 2, hyperlipidemia, recurrent renal stone, asthma PSH- lithotripsy, hysterectomy, tonsillectomy, tubal ligation, status post lithotripsy, stent placement in the left kidney Allergy- NKDA Personal History/ Social History- smokes few or than 1 pack of cigarettes per day, denies alcoholism or substance abuse, lives at home ROS Cardiovascular- deny acute chest pain or shortness of breath or cough or palpitation Respiratory denies cough or short of breath or wheezing Gastrointestinal- denies any rectal bleeding, nausea or vomiting Genitourinary system-left upper abdominal and flank pain Musculoskeletal-denies acute joint swelling or tenderness or redness Neurological- denies acute dysarthria, dysphagia, change in vision Psychiatry- denies depression or SI or HI Skin- denies acute rash or purpura Patient was seen today at bedside Labs and chart reviewed Patient on antibiotic ceftriaxone for suspected sepsis/pyelonephritis Continue IV fluid Patient is a scheduled for Left ureteroscopic laser lithotripsy with renal evacuation using CVAC and stent remova today at p.m. Objective vital signs Vital Sign Date Time Temp Pulse Resp B/P (MAP) Pulse Ox O2 Delivery O2 Flow Rate FiO2 02/05/25 13:11 78 14 113/57 02/05/25 09:00 98.3 94 98.3 02/05/25 07:07 Room Air* 0 21 Total Intake and Output 02/04/25 02/04/25 02/05/25 15:00 23:00 07:00 Intake Total 250 ml 0 ml Balance 250 ml 0 ml medications Current Medications Medications Dose Ordered Sig/Shannon Route Start Time Stop Time Status Last Admin Dose Admin Sodium Chloride 1,000 ml @ 120 mls/hr Q8H20M IV 02/04/25 14:15 02/05/25 08:37 120 MLS/HR Acetaminophen/ Hydrocodone Bitart 1 tab Q4HP PRN PO 02/04/25 14:15 02/05/25 08:35 1 TAB Ondansetron HCl 4 mg Q4HP PRN IV 02/04/25 14:15 Docusate Sodium 100 mg BIDPRN PRN PO 02/04/25 14:15 Acetaminophen 650 mg Q6HP PRN PO 02/04/25 14:15 Nitroglycerin 0.4 mg Q5MINP PRN SL 02/04/25 14:15 Morphine Sulfate 2 mg Q30M PRN IV 02/04/25 14:15 Ipratropium [place] 0.5 mg Q6HPRN PRN NEB 02/04/25 18:30 Albuterol 2.5 mg Q6HPRN PRN NEB 02/04/25 18:30 Duloxetine HCl 60 mg DAILY PO 02/05/25 10:00 Pregabalin 150 mg BID PO 02/04/25 22:00 02/04/25 22:55 150 MG Lidocaine 1 patch DAILY TOP 02/05/25 10:00 Enoxaparin Sodium 40 mg DAILY SC 02/05/25 10:00 Famotidine 20 mg Q12HR IV 02/04/25 22:00 Nicotine 1 patch DAILY TD 02/05/25 10:00 02/05/25 12:40 1 PATCH Hydromorphone HCl 0.5 mg Q4HPRN PRN IV 02/05/25 09:00 02/05/25 12:41 0.5 MG Ceftriaxone Sodium/Dextrose 50 ml @ 50 mls/hr DAILY IV 02/05/25 11:15 02/05/25 12:40 50 MLS/HR Examination General examination- awake, alert HEENT- PEERLA, no acute nasal discharge Cardiovascular- S1-S2 audible, rate and rhythm regular, no murmur Respiratory- CTAB, no wheeze or rhonchi Gastrointestinal-nontender, bowel sound+. Nondistended Musculoskeletal-no acute joint swelling or tenderness or redness Renal system-left upper abdomen and left flank tenderness Lower extremity- no leg edema Neurological- cranial nerves intact, no acute dysarthria or dysphagia Psychiatry- denies depression or SI or HI Skin- no acute rash or purpura laboratory and microbiology Laboratory Tests 02/05/25 04:53 Test 02/05/25 04:53 Range/Units Serum Glucose 177 H 74-106 mg/dL Microbiology Date/Time Source Procedure Growth Status 02/04/25 19:25 Voided Urine Urine Culture - Preliminary No growth Resulted Problem List/Assessment/Plan Problem List/Assessment/Plan Assessment and plan # sepsis likely due to acute complicated UTI # acute complicated UTI # nephrolithiasis, status post left renal stent # intractable left flank pain likely due to above - CT scan of the abdomen and pelvis revealed left nephroureteral stent is noted. No obstructing calculus is seen. 13 mm probable left adrenal adenoma. Renal ultrasound revealed 1.6 x 0.8 x 1.8 cm calculus in the left kidney. - urine culture no growth so far -continue IV antibiotic ceftriaxone as prescribed -patient was seen by Urology Dr. Ahuamda, recommendation reviewed and appreciated -is scheduled for Left ureteroscopic laser lithotripsy with renal evacuation using CVAC and stent removal at p.m. today # hypertension -monitor blood pressure # diabetes mellitus # dyslipidemia -continue current conservative managed # asthma no exacerbation -nebulization PRN # obesity -counseled about healthy diet, healthy lifestyle # anxiety, depression -resumed home medication # probable left adrenal adenoma -CT scan finding -follow up with the PCP for further evaluation and care as outpatient Goals of care, Code status full code ; discussed with >15 minutes PUD prophylaxis: Pantoprazole DVT prophylaxis: Lovenox Plan discussed with Dr. Cavanaugh, nursing staff, Total time spent on patient evaluation, chart review, assessment and plan, discussion discussion >35 minutes Plan discussed with: Patient, Other (RN) My Orders My Orders Orders - SARY PRICE Procedure Category Date Status Time Ceftriaxone 2gm/50ml PHA 02/05/25 In Process (Rocephin 2gm/50ml) 11:15 Visit Coding STANDARD RES Billing Provider: MARGARITA CHRISTINE MD Date of Service if different f: Feb 05, 2025 Common Visit Codes: [id number] INP/OBS CARE(HIGH) SARY PRICE Feb 05, 2025 14:23
[2025-02-05] MEDS ORDERED: KETAMINE 50mg/ML 1ml syringe ONE (17:52)
[2025-02-05] MEDS ORDERED: MIDAZOLAM HCL 2MG/2ML 2ml VIAL (1mg/ml) ONE (17:52)
[2025-02-05] MEDS ORDERED: GLYCOPYRROLATE 0.2 MG/ML 1ML VIAL ONE (17:52)
[2025-02-05] MEDS ORDERED: LIDOCAINE 2% (LOCAL ANESTH.) PF 5ml SDV ONE (17:52)
[2025-02-05] MEDS ORDERED: KETOROLAC TROMETH 30 MG/ML 1ML VIAL ONE (17:52)
[2025-02-05] MEDS ORDERED: ONDANSETRON HCL 4 MG/2 ML VIAL ONE (17:52)
[2025-02-05] MEDS ORDERED: fentaNYL CITRATE 100 MCG/2 ML VL ONE (17:52)
[2025-02-05] MEDS ORDERED: PROPOFOL 10 MG/ML 20 ML IV ONE (17:52)
[2025-02-05] MEDS ORDERED: MEPERIDINE HCL (25 MG/ML) 1ML VIAL ONE (17:52)
[2025-02-05] MEDS ORDERED: SUGAMMADEX 200mg/2ml Vial (100MG/ML) IV ONE (18:15)
[2025-02-05] MEDS: OMNIPAQUE 12mg/ml 500ml ORAL SOLUTION PO ONE (18:40)
[2025-02-05] MEDS ORDERED: ONDANSETRON HCL 4 MG/2 ML VIAL IV PRN (19:45)
[2025-02-05] MEDS: ACETAMINOPHEN IV 1000 MG/100ML (10MG/ML) IV ONE (19:45)
[2025-02-05] MEDS ORDERED: HYDROmorphone HCL 2 MG/ML VL/or syr IV PRN (19:45)
--- NOTE | 2025-02-05 19:46 | DVHNC2 ---
Procedure - OPERATIVE REPORT Pre-op. Diagnosis: Kidney Stone -Left- 1.0 cm residual Left ureteral stent Post-op. Diagnosis: Same as pre-op diagnosis Operation: Left ureteroscopy/pyeloscopy, laser lithotripsy with renal evacuation Cystoscopy with left ureteral stent removal Anesthesia: General Indications: Patient with large 1.0 cm residual left kidney stone and left ureteral stent causing severe left flank pain The indications, risks, complications, alternatives and benefits were discussed. All questions were encouraged and answered. Patient is aware of risks/co mplications including but not limited to infection, bleeding, persistent pain, possible ureteral injury/ureteral stricture requiring additional surgical management, urethral injury, urethral stricture and meatal stenosis. Details of Procedure: After obtaining the consent, patient was taken to OR suite and underwent general anesthesia. Preop antibiotic was given. Timeout was performed and deemed to be correct. With the patient positioned in the lithotomy, the area of the genitalia prepped and draped in usual sterile fashion. 22 F Cystoscope was used to access the urethra and bladder. The left ureteral stent was grasped and patsy michelle. A sensor tip guide wire was advanced through the scope into the left ureter all the way to the left collecting system under fluoroscopic control. I advanced 12x14 Fr 36 cm access sheet over the working wire all the way to the proximal ureter under fluoroscopy control, then the inner sheet and the working wire was removed. The Digital flexible Calyxo ureteroscope was advanced through the access sheet. The stones were visualized. Now using a 200 micron laser fiber the stone was blasted into small fragments and suctioned out while in dusting mode. Ureteroscope was then removed and guidewire replaced. Ureteral sheath was then removed. Bladder was decompressed. Anesthesia was reversed, patient was extubated and transferred awake and in stable conditions to recovery room. Specimens: renal stone fragments Complications: None WALTER LIZ MD Feb 05, 2025 19:46
--- NOTE | 2025-02-05 20:08 | DVH ---
Date: 02/05/2025 06:46 PM Examination: XY KUB ABDOMEN SINGLE VIEW History: LEFT LASER LITHO COMPARISON: None TECHNIQUE: Frontal views of the abdomen was obtained. FINDINGS: 3 intraoperative images of the left-sided lithotripsy. Total fluoro time 37.2 seconds Cumulative dose 21.67 mGy IMPRESSION: 1. Nonobstructive bowel gas pattern. 2. 3 images of the left-sided laser lithotripsy. 3. Fluoro time 37.2 seconds 4. Cumulative dose 21.67 mGy
--- NOTE | 2025-02-05 20:09 | DVH ---
C-ARM FLUOROSCOPY: PROCEDURE: Left-sided laser lithotripsy FLUOROSCOPY TIME: 37.2 seconds Air Kerma: 21.67 mgy FINDINGS: Spot intraoperative C arm radiographs demonstrating no intraoperative images left-sided laser lithotripsy images received with this dose summary sheet. IMPRESSION: 1. Please refer to surgical report for detailed findings. 2. Single dose summary sheet received.
[2025-02-06 01:00] VITALS: BP 116/87; PULSE 80; RESP 20; TEMP 97.3; O2SAT 98
[2025-02-06] MEDS: DOCUSATE SOD 100 MG CAP PO PRN (02:26)
[2025-02-06 03:52] LABS: Hematocrit 42.4 % (36.0-46.0); Hemoglobin 14.0 g/dL (12.2-16.2); Mean Corpuscular Hemoglobin 27.4 pg (28.0-32.0); Mean Corpuscular Volume 83.1 fL (80.0-100.0); Nucleated Red Blood Cells % 0.1 %
[2025-02-06 04:19] LABS: Chloride 104 mmol/L (98-107); Potassium 4.6 mmol/L (3.5-5.1); Sodium 140 mmol/L (136-145)
[2025-02-06 04:20] LABS: Anion Gap 9 (5-15); Carbon Dioxide 27 mmol/L (20-31)
[2025-02-06 04:21] LABS: Calcium 8.7 mg/dL (8.7-10.4)
[2025-02-06 04:25] LABS: BUN/Creatinine Ratio 13.3 (10.0-20.0); Blood Urea Nitrogen 14 mg/dL (9-23)
[2025-02-06 04:42] LABS: Glucose 320 mg/dL (74-106); Magnesium 1.6 mg/dL (1.6-2.6)
[2025-02-06 05:00] VITALS: BP 155/86; PULSE 82; RESP 19; TEMP 97; O2SAT 95
[2025-02-06] MEDS ORDERED: DEXTROSE (50%) 50ML SYRG IV PRN (05:15)
[2025-02-06] MEDS: HYDROmorphone HCL 2 MG/ML VL/or syr IV ONE (05:15)
[2025-02-06] MEDS: InsuLIN REG 1unit/0.01ml Soln (100units/ml) SC SCH (06:59)
[2025-02-06] MEDS: ACCU-CHEK COMFORT CURVE STRIP VI SCH (07:00)
[2025-02-06 08:00] VITALS: PULSE 75; RESP 19; O2SAT 97
[2025-02-06] MEDS: MAGNESIUM SULFATE 1GM/100ML 100 ML IV ONE (08:45)
[2025-02-06 09:00] VITALS: BP 149/90; PULSE 75; RESP 20; TEMP 98.4; O2SAT 97
--- NOTE | 2025-02-06 09:45 | DVHDSRES ---
Discharge Summary Date of Admission Resident Creating Document: SARY PRICE RESIDENT Feb 04, 2025 at 14:05 Date of Discharge: Feb 06, 2025 Admitting Diagnosis Acute complicated UTI Labs/Diagnostic Data: Laboratory Results Test 02/06/25 03:46 02/06/25 02:51 02/05/25 09:06 02/05/25 04:53 POC Glucose 333 mg/dl (70-106) White Blood Count 8.3 10^3/uL (4.4-10.8) Red Blood Count 5.11 10^6/uL (4.0-5.20) Hemoglobin 14.0 g/dL (12.2-16.2) Hematocrit 42.4 % (36.0-46.0) Mean Corpuscular Volume 83.1 fL (80.0-100.0) Mean Corpuscular Hemoglobin 27.4 pg (28.0-32.0) Mean Corpuscular Hemoglobin Concent 33.0 g/dL (32.0-36.0) Red Cell Distribution Width 15.2 % (11.8-14.3) Platelet Count 169 10^3/uL (140-450) Mean Platelet Volume 8.1 fL (6.9-10.8) Neutrophils (%) (Auto) 91.6 % (37.0-80.0) Lymphocytes (%) (Auto) 6.8 % (10.0-50.0) Monocytes (%) (Auto) 1.5 % (0.0-12.0) Eosinophils (%) (Auto) 0.1 % (0.0-7.0) Basophils (%) (Auto) 0.0 % (0.0-2.0) Neutrophils # (Auto) 7.6 10 ^3/uL (1.6-8.6) Lymphocytes # (Auto) 0.6 10 ^3/uL (0.4-5.4) Monocytes # (Auto) 0.1 10 ^3/uL (0-1.3) Eosinophils # (Auto) 0 10 ^3/uL (0-0.8) Basophils # (Auto) 0 10 ^3/uL (0-0.2) Nucleated Red Blood Cells 0.1 % Sodium Level 140 mmol/L (136-145) Potassium Level 4.6 mmol/L (3.5-5.1) Chloride Level 104 mmol/L (98-107) Carbon Dioxide Level 27 mmol/L (20-31) Anion Gap 9 (5-15) Blood Urea Nitrogen 14 mg/dL (9-23) Creatinine 1.05 mg/dL (0.550-1.02) Glomerular Filtration Rate Calc 61 mL/min (>90) BUN/Creatinine Ratio 13.3 (10.0-20.0) Serum Glucose 320 mg/dL (74-106) Calcium Level 8.7 mg/dL (8.7-10.4) Magnesium Level 1.6 mg/dL (1.6-2.6) Vancomycin Level Trough 5.3 ug/mL (5-10) Prothrombin Time 10.9 sec (9.3-11.8) Prothrombin Time INR 1.03 (0.9-1.15) Activated Partial Thromboplast Time 27.0 SEC (24.5-34.5) Total Bilirubin 0.4 mg/dL (0.2-1.0) Aspartate Amino Transferase (AST) 14 U/L (13-40) Alanine Aminotransferase (ALT) 16 U/L (7-40) Alkaline Phosphatase 90 U/L (46-116) Total Protein 6.1 g/dL (5.7-8.2) Albumin 3.7 g/dL (3.2-4.8) Test 02/04/25 19:25 02/04/25 18:53 Urine Color Light-yellow (Yellow) Urine Clarity Clear (Clear) Urine pH 5.5 (5.0-9.0) Urine Specific [place] 1.006 (1.001-1.035) Urine Protein Negative (Negative) Urine Ketones Negative (Negative) Urine Blood Negative /uL (Negative) Urine Nitrite Negative (Negative) Urine Bilirubin Negative (Negative) Urine Urobilinogen Normal mg/dL (Negative) Urine Leukocyte Esterase 1+ /uL (Negative) Urine RBC 1 /hpf (0 - 4) Urine Microscopic WBC 3 /HPF (0-5) Urine Squamous Epithelial Cells Few /hpf (<5) Urine Bacteria Few /hpf (None Seen) Urine Glucose Normal mg/dL (Normal) Lactic Acid Level 0.7 mmol/L (0.4-2.0) Other Laboratory Tests 02/06/25 02:51 Brief Hx & Hospital Course: Patient is 59 years old female with a past medical history of hypertension, diabetes mellitus type 2, hyperlipidemia, recurrent renal stone, asthma was sent from urologist Dr. Ahumada's office due to stent intolerance and residual kidney stone. Dr. Ahumada planned for Left ureteroscopic laser lithotripsy with renal evacuation using CVAC and stent removal. As per patient she has recurrent kidney stone. She was recently discharged from [facility] after being diagnosed with a left renal stone, patient was seen by Urology with the time and Urology commended for left ureteroscopic epic laser lithotripsy and renal stone evacuation on , 01/24/2025, as an outpatient procedure. Procedure was done at the time but post procedure patient keep having pain in the left flank. Patient also complained of intermittent dysuria. Initial lab workup revealed leukocytosis with WBC 13.0, urinalysis positive for leukocyte esterase 1+, WBC 3, bacteria few. CT scan of the abdomen and pelvis revealed left nephroureteral stent is noted. No obstructing calculus is seen. 13 mm probable left adrenal adenoma. Renal ultrasound revealed 1.6 x 0.8 x 1.8 cm calculus in the left kidney. Hospital course-patient was treated with the IV antibiotic ceftriaxone for acute complicated UTI with sepsis. Blood culture, urine culture no growth Patient had Left ureteroscopic laser lithotripsy with renal evacuation using CVAC and stent removal on 02/05/2025. No post intervention surgery. Patient is being discharged home with oral antibiotic Keflex for 5 days. Patient was advised to follow up at [facility]/Urology. Patient was hemodynamically stable on discharge. All Questions answered. General examination- awake, alert HEENT- PEERLA, no acute nasal discharge Cardiovascular- S1-S2 audible, rate and rhythm regular, no murmur Respiratory- CTAB, no wheeze or rhonchi Gastrointestinal-nontender, bowel sound+. Nondistended Musculoskeletal-no acute joint swelling or tenderness or redness Renal system-left upper abdomen and left flank tenderness Lower extremity- no leg edema Neurological- cranial nerves intact, no acute dysarthria or dysphagia Psychiatry- denies depression or SI or HI Skin- no acute rash or purpura Assessment # sepsis likely due to acute complicated UTI # acute complicated UTI # nephrolithiasis, status post left renal stent # intractable left flank pain likely due to above # hypertension # diabetes mellitus # dyslipidemia # asthma no exacerbation # obesity # anxiety, depression # probable left adrenal adenoma Plan Keflex b.i.d. for [address] [facility]/PCP/Urology Avoid dehydration and nephrotoxic drugs Plan of care discussed with Dr. Cavanaugh Consults/Reason for consult [place] [id number] [facility] [id number] Ph: [phone] PATIENT: ALLY LAIRD ACCT: [id number] : 1965 LOC: [facility] ROOM/ROOM: [address] [place] [address] AGE/SEX: 59/F ADM STATUS: ADM IN ADM DATE: 02/04/25 UNIT: [id number] HEALTH INFORMATION MANAGEMENT PROCEDURE NOTE - [facility] :[id number] Signed ORDERING PHYSICIAN: PROCEDURE(s): ORDER NUMBER(s): , ACCESSION NUMBER(s): Procedure - OPERATIVE REPORT Pre-op. Diagnosis: Kidney Stone -Left- 1.0 cm residual Left ureteral stent Post-op. Diagnosis: Same as pre-op diagnosis Operation: Left ureteroscopy/pyeloscopy, laser lithotripsy with renal evacuation Cystoscopy with left ureteral stent removal Anesthesia: General Indications: Patient with large 1.0 cm residual left kidney stone and left ureteral stent causing severe left flank pain The indications, risks, complications, alternatives and benefits were discussed. All questions were encouraged and answered. Patient is aware of risks/complications including but not limited to infection, bleeding, persistent pain, possible ureteral injury/ureteral stricture requiring additional surgical management, urethral injury, urethral stricture and meatal stenosis. Details of Procedure: After obtaining the consent, patient was taken to OR suite and underwent general anesthesia. Preop antibiotic was given. Timeout was performed and deemed to be correct. With the patient positioned in the lithotomy, the area of the genitalia prepped and draped in usual sterile fashion. 22 F Cystoscope was used to access the urethra and bladder. The left ureteral stent was grasped and removed. A sensor tip guide wire was advanced through the scope into the left ureter all the way to the left collecting system under fluoroscopic control. I advanced 12x14 Fr 36 cm access sheet over the working wire all the way to the proximal ureter under fluoroscopy control, then the inner sheet and the working wire was removed. The Digital flexible Calyxo ureteroscope was advanced through the access sheet. The stones were visualized. Now using a 200 micron laser fiber the stone was blasted into small fragments and suctioned out while in dusting mode. Ureteroscope was then removed and guidewire replaced. Ureteral sheath was then removed. Bladder was decompressed. Anesthesia was reversed, patient was extubated and transferred awake and in stable conditions to recovery room. Specimens: renal stone fragments Complications: None WALTER AHUMADA MD Feb 05, 2025 19:46 DICTATED BY: WALTER AHUMADA MD DICATED DATE/TIME: 02/05/251945 SIGNED BY: WALTER AHUMADA MD <<Signature on File>> SIGNED DATE/TIME: 02/05/251945 CC: Patient Name: ALLY LAIRD Acct: [id number] Room: [facility] /Bed: Attending Physician: DIONICIO DUNBAR RESIDENT Loc: [facility] Unit: [id number] CONSULTATION REPORT . ................................................................................ ............................................................................... Date of service: Feb 05, 2025 Referring Physician Patient was sent to [facility] from my office yesterday for management of intractable left flank pain due to stent intolerance and residual kidney stone Reason for Consultation Left flank pain History of Present Illness 59 year old female sent to [facility] for direct admission with the management of left nephrolithiasis. She has left ureteral stent and has significant discomfort from it. She will undergo left ureteroscope epic laser lithotripsy with renal evacuation and stent removal today. Chief Complaint: Flank Pain Primary Care Provider: CELESTINE Reviewed notes: Nurses Notes, Medications, Allergies Allergies: Coded Allergies: NO KNOWN ALLERGIES (Unverified , 05/08/12) Home Meds Active Scripts Lidocaine (LIDODERM 5% TOPICAL PATCH) 1 Patch Ph, 1 PATCH TOP DAILY, #30 PATCH 1 Refill Prov:ETCHEGOYEN,ESTEBAN RESIDENT 01/22/25 Reported Medications Tramadol Hcl (Tramadol Hcl) 50 Mg Tab, 50 MG PO TID PRN for 10 Days, #30 TAB 01/22/25 Information Source: Patient Mode of Arrival: Ambulatory Severity: Moderate Timing: Days Duration: Since onset Prehospital treatment: None Onset: Spontaneous History of: Kidney stone, Recent post-op Location: (L)Flank Modifying factors: None associated signs and symptoms: Flank Pain Past Medical History Past Medical History Past Medical History Asthma, DM, High Lipids, HTN, Kidney Stones Past Surgical History Hysterectomy, Tonsillectomy, Tubal Ligation Surgical History (Other): Kidney stent and kidney stone surgery COIL SHAPER History: Denies all COIL SHAPER Hx Family History: Coronary thrombosis G8 MOTHER Allergies: Coded Allergies: NO KNOWN ALLERGIES (Unverified , 05/08/12) Home Meds Active Scripts Lidocaine (LIDODERM 5% TOPICAL PATCH) 1 Patch Ph, 1 PATCH TOP DAILY, #30 PATCH 1 Refill Prov:ESTEBAN DANIELS RESIDENT 01/22/25 Reported Medications Ropinirole Hydrochloride (Ropinirole Hcl) 4 Mg Tab, 1 TAB PO 02/04/25 Tramadol Hcl (Tramadol Hcl) 50 Mg Tab, 50 MG PO TID PRN for 10 Days, #30 TAB 01/22/25 Current Medications Current Medications Medications (Trade) Dose Ordered Sig/Shannon Route PRN Reason Start Time Stop Time Status Last Admin Sodium Chloride 1,000 ml @ 120 mls/hr Q8H20M IV 02/04/25 14:15 02/05/25 08:37 Acetaminophen/ Hydrocodone Bitart (Sears 5/325MG Tab) 1 tab Q4HP PRN PO MODERATE PAIN (4-6 PAIN SCALE) 02/04/25 14:15 02/05/25 08:35 Ondansetron HCl (Zofran) 4 mg Q4HP PRN IV NAUSEA / VOMITING 02/04/25 14:15 Docusate Sodium (Colace Capsule) 100 mg BIDPRN PRN PO FOR CONSTIPATION 02/04/25 14:15 Acetaminophen (Tylenol Tablet) 650 mg Q6HP PRN PO PAIN SCALE 1-3 OR TEMP>100.4 02/04/25 14:15 Morphine Sulfate 2 mg Q4HPRN PRN IV SEVERE PAIN (7-10 PAIN SCALE) 02/04/25 14:15 02/05/25 08:58 DC Nitroglycerin (Ntrostat Sublingual) 0.4 mg Q5MINP PRN SL FOR CHEST PAIN 02/04/25 14:15 Morphine Sulfate 2 mg Q30M PRN IV FOR CHEST PAIN 02/04/25 14:15 Vancomycin HCl 0 ml @ 0 mls/hr PER PHARMACY IV 02/04/25 14:15 Vancomycin HCl 250 ml @ 250 mls/hr Q1H IV 02/04/25 14:45 02/04/25 15:15 DC Cefepime HCl 50 ml @ 12.5 mls/hr Q8HR IV 02/04/25 22:00 02/05/25 06:54 Vancomycin HCl 250 ml @ 250 mls/hr Q12H IV 02/04/25 16:00 02/05/25 04:25 Ipratropium [place] (Atrovent Medneb) 0.5 mg Q6HPRN PRN NEB SHORTNESS OF BREATH 02/04/25 18:30 Albuterol (Ventolin Medneb) 2.5 mg Q6HPRN PRN NEB SHORTNESS OF BREATH 02/04/25 18:30 Duloxetine HCl (Cymbalta Capsule) 60 mg DAILY PO 02/05/25 10:00 Pregabalin (Lyrica Capsule) 150 mg BID PO 02/04/25 22:00 02/04/25 22:55 Lidocaine (Lidoderm 5% Topical Patch) 1 patch DAILY TOP 02/05/25 10:00 Enoxaparin Sodium (Lovenox) 40 mg DAILY SC 02/05/25 10:00 Famotidine (Pepcid Injection) 20 mg Q12HR IV 02/04/25 22:00 Nicotine (Nicoderm 14MG/ 24HR) 1 patch DAILY TD 02/05/25 10:00 Hydromorphone HCl (Dilaudid Injection) 0.5 mg Q4HPRN PRN IV SEVERE PAIN (7-10 PAIN SCALE) 02/05/25 09:00 Review of Systems Constitutional: denies: chills, diaphoresis, fatigue, fever, malaise, sweats, weakness, others EENTM: denies: blurred vision, double vision, ear bleeding, ear discharge, ear drainage, ear pain, ear ringing, eye pain, eye redness, hearing loss, mouth pain, mouth swelling, nasal discharge, nose bleeding, nose congestion, nose pain, photophobia, tearing, throat pain, throat swelling, voice changes, others Respiratory: denies: cough, hemoptysis, orthopnea, SOB at rest, shortness of breath, SOB with excertion, stridor, wheezing, others Cardiovascular: denies: chest pain, dizzy spells, diaphoresis, Dyspnea on exertion, edema, irregular heart beat, left arm pain, lightheadedness, palpitations, PND, syncope, others Gastrointestinal: denies: abdomen distended, abdominal pain, blood streaked bowels, constipated, diarrhea, dysphagia, difficulty swallowing, hematemesis, melena, nausea, poor appetite, poor fluid intake, rectal bleeding, rectal pain, vomiting, others Genitourinary: reports: flank pain; denies: abnormal vagina bleeding, burning, dyspareunia, dysuria, frequency, hematuria, incontinence, pain, , vagina discharge, urgency, others Neurological: denies: dizziness, fainting, headache, left sided numbness, left sided weakness, numbness, paresthesia, pre-existing deficit, right sided numbness, right sided weakness, seizure, speech problems, tingling, tremors, weakness, others Musculoskeletal: denies: back pain, gout, joint pain, joint swelling, muscle pain, muscle stiffness, neck pain, others Integumetry: denies: bruises, change in color, change in hair/nails, dryness, laceration, lesions, lumps, rash, wounds, others Allergic/Immunocompromised: denies: Difficulty Healing, Frequent Infections, Hives, Itching, others Hematologic/Lymphatic: denies: anemia, blood clots, easy bleeding, easy bruising, swollen glands, others Endocrine: denies: excessive hunger, excessive sweating, excessive thirst, excessive urination, flushing, intolerance to cold, intolerance to heat, unexplained weight gain, unexplained weight loss, others Psychiatric: denies: anxiety, bipolar disorder, depression, hopeless, panic disorder, schizophrenia, sleepless, suicidal, others All Other Systems: Reviewed and Negative Vital Signs Vital Signs Date Time Temp Pulse Resp B/P (MAP) Pulse Ox O2 Delivery O2 Flow Rate FiO2 02/05/25 07:07 95 Room Air* 0 21 02/05/25 05:00 98.3 71 16 96/67 (53) 98.3 Physical Exam General Appearance: Moderate Distress HEENT: Normal ENT Inspection, Pharynx Normal, TMs Normal Neck: Full Range of Motion, Non-Tender, Normal, Normal Inspection Respiratory: Chest Non-Tender, Lungs Clear, No Accessory Muscle Use, No Respiratory Distress, Normal Breath Sounds Cardiovascular: No Edema, No JVD, No Murmur, No Gallop, Normal Peripheral Pulses, Regular Rate/Rhythm Breast Exam: Deferred Gastrointestinal: No Organomegaly, Non Tender, No Pulsatile Mass, Normal Bowel Sounds, Soft Genitalia: Deferred Pelvic: Deferred Rectal: Deferred Extremities: No calf tenderness, Normal capillary refill, No pedal edema Musculoskeletal : Location: Left Extremity Location: Back (Nephrostomy tube in place) Apperance: Limited ROM Neurologic: Alert, senior client advisor II-XII nml as Tested, No Motor Deficits, Normal Affect, Normal Mood, No Sensory Deficits Cerebellar Function: Normal Reflexes: Normal Skin: Dry, Normal Color, Warm Lymphatic: No Adenopathy Labs/Diagnostic Data Labs Test 02/05/25 09:06 02/05/25 04:53 02/04/25 19:25 02/04/25 18:53 Range/Units White Blood Count 9.4 # 4.4-10.8 10^3/uL Red Blood Count 5.19 4.0-5.20 10^6/uL Hemoglobin 14.2 12.2-16.2 g/dL Hematocrit 43.7 36.0-46.0 % Mean Corpuscular Volume 84.1 80.0-100.0 fL Mean Corpuscular Hemoglobin 27.3 L 28.0-32.0 pg Mean Corpuscular Hemoglobin Concent 32.4 32.0-36.0 g/dL Red Cell Distribution Width 15.4 H 11.8-14.3 % Platelet Count 198 140-450 10^3/uL Mean Platelet Volume 7.9 6.9-10.8 fL Neutrophils (%) (Auto) 55.2 37.0-80.0 % Lymphocytes (%) (Auto) 34.0 10.0-50.0 % Monocytes (%) (Auto) 8.0 0.0-12.0 % Eosinophils (%) (Auto) 2.4 0.0-7.0 % Basophils (%) (Auto) 0.4 0.0-2.0 % Neutrophils # (Auto) 5.2 1.6-8.6 10 ^3/uL Lymphocytes # (Auto) 3.2 0.4-5.4 10 ^3/uL Monocytes # (Auto) 0.7 0-1.3 10 ^3/uL Eosinophils # (Auto) 0.2 0-0.8 10 ^3/uL Basophils # (Auto) 0 0-0.2 10 ^3/uL Nucleated Red Blood Cells 0.1 % Sodium Level 141 136-145 mmol/L Potassium Level 3.9 3.5-5.1 mmol/L Chloride Level 108 H 98-107 mmol/L Carbon Dioxide Level 24 20-31 mmol/L Anion Gap 9 5-15 Blood Urea Nitrogen 7 L 9-23 mg/dL Creatinine 0.95 0.550-1.02 mg/dL Glomerular Filtration Rate Calc 69 >90 mL/min BUN/Creatinine Ratio 7.4 L 10.0-20.0 Serum Glucose 177 H 74-106 mg/dL Calcium Level 8.6 L 8.7-10.4 mg/dL Total Bilirubin 0.4 0.2-1.0 mg/dL Aspartate Amino Transferase (AST) 14 13-40 U/L Alanine Aminotransferase (ALT) 16 7-40 U/L Alkaline Phosphatase 90 46-116 U/L Total Protein 6.1 5.7-8.2 g/dL Albumin 3.7 3.2-4.8 g/dL Urine Color Light-yellow Yellow Urine Clarity Clear Clear Urine pH 5.5 5.0-9.0 Urine Specific [place] 1.006 1.001-1.035 Urine Protein Negative Negative Urine Ketones Negative Negative Urine Blood Negative Negative /uL Urine Nitrite Negative Negative Urine Bilirubin Negative Negative Urine Urobilinogen Normal Negative mg/dL Urine Leukocyte Esterase 1+ Negative /uL Urine RBC 1 0 - 4 /hpf Urine Microscopic WBC 3 0-5 /HPF Urine Squamous Epithelial Cells Few <5 /hpf Urine Bacteria Few H None Seen /hpf Urine Glucose Normal Normal mg/dL Lactic Acid Level 0.7 0.4-2.0 mmol/L Assessment Left nephrolithiasis Left ureteral stent Intractable left flank pain Plan/Recommendation Left ureteroscopic laser lithotripsy with renal evacuation using CVAC and stent removal Plan discussed with: Patient, Other WALETR AHUMADA MD Feb 05, 2025 09:16 DICTATED BY:WALTER AHUMADA MD DICTATED DATE/TIME:02/05/25915 ELECTRONICALLY SIGNED BY:WALTER AHUMADA MD 02/05/25915 ELECTRONICALLY CO-SIGNED BY: Operations or Procedures [address] [address] Ph: [phone] DIAGNOSTIC IMAGING Diagnostic Imaging Report : [id number] Signed PATIENT: ALLY LAIRD ACCT: [id number] UNIT: [id number] : 1965 LOC: ER ROOM / BED: / AGE / SEX: 59 / F ADM STATUS: REG ER SERVICE 1253 ORDERING PHYSICIAN: PAM BEACH MD PROCEDURE(s): ABPL - CT AB PEL WO CON-NO ORAL OR IV REASON: right flank pain ORDER NUMBER(s): [id number], ACCESSION NUMBER(s): [id number] EXAM: CT CT AB PEL WO CON-NO ORAL OR IV HISTORY: right flank pain COMPARISON STUDY: CT CT AB PEL WO CON-NO ORAL OR IV on DOS: 01/21/25 TECHNIQUE: Multidetector CT of the abdomen and pelvis was performed from lung bases to pubic symphysis. Imaging was performed without IV contrast. Axial, coronal, and sagittal multiplanar reformats were obtained from the axial data set by the technologist. RADIATION DOSE: CTDI vol 25.6 mGy. DLP 1435.9 mGy.cm FINDINGS: Limited evaluation of the solid organs in the absence of IV contrast. Lungs: Minimal scarring/atelectasis. Liver: Mild hepatomegaly measuring up to 19.6 cm. Spleen: Mild splenomegaly measuring up to 13.6 cm. Pancreas: Unremarkable. Gallbladder: Unremarkable. Adrenals: 13 mm probable left adrenal adenoma. Kidneys: A left nephroureteral stent is noted. No obstructing calculus is seen. Nonobstructing left renal calculi are noted. The right kidney is unremarkable. There is mild left renal cortical atrophy / scarring. Pelvic Viscera: The urinary bladder is decompressed. Prior hysterectomy. Vasculature: Atherosclerotic aortoiliac calcification. Retroperitoneum: Unremarkable. Bowel: No bowel obstruction. The appendix is normal. Musculoskeletal: Unremarkable. Soft tissues: Unremarkable IMPRESSION: 1. No acute abdominopelvic abnormality. 2. Incidental findings as detailed. ATED BY: OLINDA BRUNER MD DICTATED DATE/TIME: 02/04/25 135 SIGNED BY: OLINDA BRUNER MD SIGNED DATE/TIME: 02/04/25 135 CC: [place] [id number] Ph: [phone] DIAGNOSTIC IMAGING Diagnostic Imaging Report : [id number] Signed PATIENT: ALLY LAIRD ACCT: [id number] UNIT: [id number] : 1965 LOC: OVERFLOW ROOM / BED: [address] [place] [address] AGE / SEX: 59 / F ADM STATUS: ADM IN SERVICE 04 ORDERING PHYSICIAN: DIONICIO DUNBAR PROCEDURE(s): KIDUS - KIDNEY REASON: Renal stone hisotory with stent ORDER NUMBER(s): [id number], ACCESSION NUMBER(s): [id number] INDICATION: Renal stone hisotory with stent TECHNIQUE: Multiple real-time sonographic images of the kidneys and bladder were obtained. COMPARISON: None FINDINGS: The right kidney measures 11.5 cm in length, which is normal in size. There is normal echogenicity of the right kidney. No hydronephrosis. The left kidney measures 10.6 cm in length, which is normal in size. Cholelithiasis on the left. Possible increased cortical echogenicity is noted. There is a solid echogenic focus in the left kidney measuring 1.6 x 0.8 x 1.8 cm possible calculus. No large intraluminal masses are seen in the bladder. Right ureteral jet noted in the bladder. Left ureteral jet was not visualized. Prior to voiding the bladder volume measures volume 41 mL Questionable stent noted in the bladder. Echogenic findings is poorly visualized. According to a CT abdomen and pelvis done 02/04/2025 a left ureteral stent is present. IMPRESSION: 1. 11.5 cm long right kidney. 10.6 cm long left kidney. 2. Nephrolithiasis on the left. 3. Increased echogenicity of the left renal cortex 4. 1.6 x 0.8 x 1.8 cm calculus in the left kidney. ATED BY: MAHENDRA KELLEY Jr., DO DICTATED DATE/TIME: 02/04/25 1610 SIGNED BY: MAHENDRA KELLEY Jr., DO SIGNED DATE/TIME: 02/04/25 1610 CC: [place] [id number] Ph: [phone] DIAGNOSTIC IMAGING Diagnostic Imaging Report : [id number] Signed PATIENT: ALLY LAIRD ACCT: [id number] UNIT: [id number] : 1965 [facility] AGE / SEX: 59 / F ADM STATUS: ADM IN SERVICE 1327 ORDERING PHYSICIAN: WALTER AHUMADA MD PROCEDURE(s): CXRP - CHEST PORTABLE REASON: protocol for procedure ORDER NUMBER(s): [id number], ACCESSION NUMBER(s): [id number] CHEST RADIOGRAPH INDICATION: protocol for procedure TECHNIQUE: Single frontal view of the chest was obtained COMPARISON: None FINDINGS: Lines and Tubes: None Lungs: No focal consolidation. Pleura: No effusion. No pneumothorax. Cardiomediastinal contours: Unremarkable Bones: No acute osseous abnormality. IMPRESSION: 1. No acute cardiopulmonary disease. ATED BY: MAHENDRA KELLEY Jr., DO DICTATED DATE/TIME: 02/05/25 140 SIGNED BY: MAHENDRA KELLEY Jr., DO SIGNED DATE/TIME: 02/05/25 140 CC: [place] [id number] Ph: [phone] DIAGNOSTIC IMAGING Diagnostic Imaging Report : [id number] Signed PATIENT: ALLY LAIRD ACCT: [id number] UNIT: [id number] : 1965 [facility] AGE / SEX: 59 / F ADM STATUS: ADM IN SERVICE 192 ORDERING PHYSICIAN: SARY PRICE PROCEDURE(s): CARM1 - C ARM FLUOROSCOPY UP TO 60MIN REASON: LEFT LASER LITHO ORDER NUMBER(s): [id number], ACCESSION NUMBER(s): [id number] C-ARM FLUOROSCOPY: PROCEDURE: Left-sided laser lithotripsy FLUOROSCOPY TIME: 37.2 seconds Air Kerma: 21.67 mgy FINDINGS: Spot intraoperative C arm radiographs demonstrating no intraoperative images left-sided laser lithotripsy images received with this dose summary sheet. IMPRESSION: 1. Please refer to surgical report for detailed findings. 2. Single dose summary sheet received. ATED BY: MAHENDRA KELLEY Jr., DO DICTATED DATE/TIME: 02/05/252006 SIGNED BY: MAHENDRA KELLEY Jr., DO SIGNED DATE/TIME: 02/05/252006 CC: [place] [id number] Ph: [phone] DIAGNOSTIC IMAGING Diagnostic Imaging Report : [id number] Signed PATIENT: ALLY LAIRD ACCT: [id number] UNIT: [id number] : 1965 [facility] / BED: 43 [place] [address] AGE / SEX: 59 / F ADM STATUS: ADM IN SERVICE 28 ORDERING PHYSICIAN: SARY PRICE RESIDENT PROCEDURE(s): KUB - KUB ABDOMEN SINGLE VIEW REASON: LEFT LASER LITHO ORDER NUMBER(s): [id number], ACCESSION NUMBER(s): [id number] Date: 02/05/2025 06:46 PM Examination: XY KUB ABDOMEN SINGLE VIEW History: LEFT LASER LITHO COMPARISON: None TECHNIQUE: Frontal views of the abdomen was obtained. FINDINGS: 3 intraoperative images of the left-sided lithotripsy. Total fluoro time 37.2 seconds Cumulative dose 21.67 mGy IMPRESSION: 1. Nonobstructive bowel gas pattern. 2. 3 images of the left-sided laser lithotripsy. 3. Fluoro time 37.2 seconds 4. Cumulative dose 21.67 mGy ATED BY: MAHENDRA KELLEY Jr., DO DICTATED DATE/TIME: 02/05/252004 SIGNED BY: MAHENDRA KELLEY Jr., DO SIGNED DATE/TIME: 02/05/252004 CC: Condition at Discharge: Stable Final Diagnosis/Problems List # sepsis likely due to acute complicated UTI # acute complicated UTI # nephrolithiasis, status post left renal stent # intractable left flank pain likely due to above # hypertension # diabetes mellitus # dyslipidemia # asthma no exacerbation # obesity # anxiety, depression # probable left adrenal adenoma Discharge Disposition: Home Discharge Instruct/Medications Diet: Consistent carbohydrate, Cardiac 2g Na,low cholest Activity: No Restrictions, As Tolerated Follow Up/Referral: DC clinic PCP Urology Medications: As above Scheduled Cephalexin (Keflex Capsule), 500 MG PO BID Lidocaine (Lidoderm 5% Topical Patch), 1 PATCH TOP DAILY Scheduled PRN Tramadol Hcl (Tramadol Hcl), 50 MG PO TID PRN, (Reported) Miscellaneous Medications Ropinirole Hydrochloride (Ropinirole Hcl), 1 TAB PO, (Reported) Discharge Statement: "Patient was advised to return to the ER or call 911 if any headaches, dizziness, shortness of breath, chest pain, abdominal pain, bleeding, fevers, or worsening of medical condition. Patient was counseled about treatment plan, medications, possible side effects, patientverbalized understanding. All questions were answered to the best of my ability. This discharge took greater then 30 minutes in planning, reviewing documentation, counseling the patient, and discussing with other team members." ASSESSMENT ASSESSMENT Assessment Visit Coding STANDARD RES Billing Provider: MARGARITA CHRISTINE MD Date of Service if different f: Feb 06, 2025 Common Visit Codes: 03206-JSI/OBS DISCH DAY >30min SARY PRICE RESIDENT Feb 06, 2025 09:45
[2025-02-06 10:00] VITALS: O2SAT 97
[2025-02-06] MEDS ORDERED: CEPH250C PO (11:26)
[2025-02-06] MEDS ORDERED: InsuLIN REG 1unit/0.01ml Soln (100units/ml) SC SCH (22:00)
--- NOTE | 2025-02-07 09:05 | ECG ---
[facility] Test Date: 2025-02-05 Test Time: 13:52:17 Pat Name: ALLY LAIRD Department: Respiratoy Room: 0297 B Gender: F [employer]: AMADA : 1965 Requested By: WALTER LIZ Order Number: [id number] Reading MD: Jorje Napier Measurements Intervals [place] Rate: 82 P: 47 GA: 185 QRS: 41 QRSD: 141 T: 19 QT: 392 QTc: 458 Interpretive Statements Sinus rhythm Right bundle branch block Electronically Signed On 02-07-2025 17:27:52 PST by Jorje Napier Please click the below link to view image of tracing.
== END 2025-02-06 12:15 | disposition home or self-care (01) | DRG 872 ==
LOC: ER 12:25 → OVERFLOW 14:05 → TELE-WESTW 22:48 → WEST WING 02-06 08:30
PROVIDERS: ADMIT Student in an Organized Health Care Education/Training Program; ATTEND Student in an Organized Health Care Education/Training Program
PROC: 0TC18ZZ Extirpation of Matter from Left Kidney, Via Natural or Artificial Opening Endoscopic (ICD-10-PCS; 2025-02-05)
PROC: 0TP98DZ Removal of Intraluminal Device from Ureter, Via Natural or Artificial Opening Endoscopic (ICD-10-PCS; principal; 2025-02-05 17:55)
DX: A41.9 Sepsis, unspecified organism (principal); D35.02 Benign neoplasm of left adrenal gland; N39.0 Urinary tract infection, site not specified; E11.9 Type 2 diabetes mellitus without complications; E66.9 Obesity, unspecified; I10 Essential (primary) hypertension; J45.909 Unspecified asthma, uncomplicated; F32.A Depression, unspecified; G25.81 Restless legs syndrome; N20.2 Calculus of kidney with calculus of ureter; E78.5 Hyperlipidemia, unspecified; F17.210 Nicotine dependence, cigarettes, uncomplicated; F41.9 Anxiety disorder, unspecified; G89.29 Other chronic pain; M54.9 Dorsalgia, unspecified; Z87.442 Personal history of urinary calculi; Z90.710 Acquired absence of both cervix and uterus; Z98.51 Tubal ligation status; Z82.49 Family history of ischemic heart disease and other diseases of the circulatory system; Z68.36 Body mass index [BMI] 36.0-36.9, adult; Z71.6 Tobacco abuse counseling
CPT/HCPCS: 36415; 71045; 74018; 74176; 76000; 76775; 80048; 80053; 80202; 81001; 82360; 82962; 83605; 83735; 85025; 85610; 85730; 86850; 86900; 86901; 87040; 87086; 87088; 93005; G0378; J0131; J1100; J1885; J2003; J2250; J2405; J2704; J3490